=== PATIENT | female | born 1955 | race Caucasian/White ===

== ENCOUNTER 2016-09-27 18:48 | Inpatient (IN) | payer MEDICARE ==
[~2016-09-27] VITALS: Ht 162.6 cm; Wt 58.5 kg
[~2016-09-27 18:48] MED LIST: SODIUM CHLOR 0.9% 1000 ML INJ 1,000 ML IV ONE
[2016-09-27 18:51] VITALS: BP 163/110; PULSE 116; RESP 12; TEMP 100.9; O2SAT 99
[2016-09-27] MEDS ORDERED: NALOXONE HCL 0.4 MG/ML AMP ONE (18:53)
[2016-09-27] MEDS ORDERED: NALOXONE HCL 2 MG/2 ML VIAL ONE (18:53)
[2016-09-27] MEDS ORDERED: ACTIVATED CHARCOAL LIQUID 25 GM/120 ML BTL PO/NG ONE (19:00)
[2016-09-27] MEDS ORDERED: NALOXONE HCL 2 MG/2 ML VIAL IV PUSH ONE ×2 (19:00→19:45)
[2016-09-27] MEDS ORDERED: SODIUM CHLORIDE 0.9% FLUSH 10 ML FLUSH IVF PRN (19:00)
[2016-09-27 19:06] VITALS: RESP 12; O2SAT 100
--- NOTE | 2016-09-27 19:14 | PD ---
HPI Chief Complaint: OD/ Ingestion Time Seen by Provider: 18:48 Travel History International Travel<30 days: No Contact w/Intl Traveler<30days: No Traveled to known affect area: No History of Present Illness HPI 61 yo F arrives by EMS. History is provided mainly by EMS. The patient was found at home by her friend at approximately 6 PM. At 10 AM in the morning the patient's friend had left the patient's house. At that time the patient was sitting in her recliner. When the friend returned this evening the patient had essentially not removed and the patient's mental status was quite poor with EMS reporting a GCS of 3 on scene and a blood pressure of 80/60 with a heart rate in the 60s. The patient received 2 mg of Narcan and the heart rate increased to about 110 and the blood pressure increased to about 120/80. The patient underwent shoulder surgery yesterday. She does not recall the name of the orthopedic surgeon or the nature of the surgery. The patient denies pain at the time of interview. EMS reports there was a prescription for Lortab written yesterday for 60 tablets with 48 remaining. PFSH Past Medical History ?: Not Social History Tobacco Use: No (unable to assess) Allergies-Medications (Allergen,Severity, Reaction): Coded Allergies: UNOBTAINABLE (Unverified , 09/27/16) Review of Systems Except as stated in HPI: all other systems reviewed are Neg Physical Exam Narrative GENERAL: 59-year-old female GCS of 15, somewhat sluggish to answer questions however her speech is appropriate and she follows commands. SKIN: Warm and dry. HEAD: Atraumatic. Normocephalic. EYES: Pupils equal and round. No scleral icterus. No injection or drainage. ENT: No nasal bleeding or discharge. Mucous membranes pink and moist. NECK: Trachea midline. No JVD. CARDIOVASCULAR: Regular rate and rhythm. RESPIRATORY: No accessory muscle use. Clear to auscultation. Breath sounds equal bilaterally. GASTROINTESTINAL: Abdomen soft, non-tender, nondistended. Hepatic and splenic margins not palpable. MUSCULOSKELETAL: Extremities without clubbing, cyanosis, or edema. No obvious deformities. There is a surgical dressing overlying the right shoulder. Underlying surgical scar is intact without cellulitic change. There is appropriate tenderness in the area. NEUROLOGICAL: Awake and alert. No obvious cranial nerve deficits. Motor grossly within normal limits. Five out of 5 muscle strength in the arms and legs. Normal speech. PSYCHIATRIC: Possible OD. Data Data Last Documented VS Vital Signs Date Time Temp Pulse Resp B/P Pulse Ox O2 Delivery O2 Flow Rate FiO2 09/27/16 20:21 103 14 110/71 99 Nasal Cannula 2 09/27/16 18:51 100.9 VS reviewed Orders Electrocardiogram (09/27/16 18:48) Complete Blood Count With Diff (09/27/16 18:48) Comprehensive Metabolic Panel (09/27/16 18:48) Prothrombin Time / Inr (Pt) (09/27/16 18:48) Act Partial Throm Time (Ptt) (09/27/16 18:48) Urinalysis - C+S If Indicated (09/27/16 18:48) Chest, Single Ap (09/27/16 18:48) Iv Access Insert/Monitor (09/27/16 18:48) Ecg Monitoring (09/27/16 18:48) Oximetry (09/27/16 18:48) Charcoal Activated Liq (Actidose-Aqua Li (09/27/16 19:00) Sodium Chloride 0.9% Flush (Ns Flush) (09/27/16 19:00) Sodium Chlor 0.9% 1000 Ml Inj (Ns 1000 M (09/27/16 18:48) Drug Screen, Random Urine (09/27/16 18:48) Alcohol (Ethanol) (09/27/16 18:48) Salicylates (Aspirin) (09/27/16 18:48) Tylenol (Acetaminophen) (09/27/16 18:48) Naloxone Inj (Narcan Inj) (09/27/16 19:00) Naloxone Inj (Narcan Inj) (09/27/16 18:53) Naloxone Inj (Narcan Inj) (09/27/16 18:53) Lactic Acid Sepsis Protocol (09/27/16 19:14) Magnesium (Mg) (09/27/16 19:14) Ckmb (Isoenzyme) Profile (09/27/16 19:14) Troponin I (09/27/16 19:14) Urinalysis - C+S If Indicated (09/27/16 19:14) Bacterial Antigen Csf (09/27/16 19:14) Csf Cell Count + Differential (09/27/16 19:14) Glucose, Csf (09/27/16 19:14) Total Protein, Csf (09/27/16 19:14) Csf Culture And Gram Stain (09/27/16 19:14) Blood Culture (09/27/16 19:14) Ct Brain W/O Iv Contrast(Rout) (09/27/16 19:14) Naloxone Inj (Narcan Inj) (09/27/16 19:45) Cefepime Inj (Maxipime Inj) (09/27/16 20:15) Azithromycin Inj (Zithromax Inj) (09/27/16 20:15) Csf Cell Count + Differential (09/27/16 20:20) CKMB (09/27/16 19:05) CKMB% (09/27/16 19:05) Naloxone Inj (Narcan Inj) (09/27/16 21:45) Naloxone Inj (Narcan Inj) (09/27/16 21:45) Admit Order (Ed Use Only) (09/27/16 21:45) Labs Laboratory Tests Test 09/27/16 09/27/16 09/27/16 09/27/16 19:05 19:10 19:15 20:00 White Blood Count 8.8 TH/MM3 Red Blood Count 3.14 MIL/MM3 Hemoglobin 10.0 GM/DL Hematocrit 30.2 % Mean Corpuscular Volume 96.1 FL Mean Corpuscular Hemoglobin 32.0 PG Mean Corpuscular Hemoglobin 33.3 % Concent Red Cell Distribution Width 12.8 % Platelet Count 178 TH/MM3 Mean Platelet Volume 8.0 FL Neutrophils (%) (Auto) 80.8 % Lymphocytes (%) (Auto) 5.1 % Monocytes (%) (Auto) 13.8 % Eosinophils (%) (Auto) 0.0 % Basophils (%) (Auto) 0.3 % Neutrophils # (Auto) 7.1 TH/MM3 Lymphocytes # (Auto) 0.4 TH/MM3 Monocytes # (Auto) 1.2 TH/MM3 Eosinophils # (Auto) 0.0 TH/MM3 Basophils # (Auto) 0.0 TH/MM3 CBC Comment DIFF FINAL Differential Comment Prothrombin Time 14.7 SEC Prothromb Time International 1.3 RATIO Ratio Activated Partial 32.2 SEC Thromboplast Time Sodium Level 140 MEQ/L Potassium Level 3.4 MEQ/L Chloride Level 106 MEQ/L Carbon Dioxide Level 25.5 MEQ/L Anion Gap 9 MEQ/L Blood Urea Nitrogen 10 MG/DL Creatinine 1.54 MG/DL Estimat Glomerular Filtration 29 ML/MIN Rate Random Glucose 104 MG/DL Calcium Level 6.7 MG/DL Protein Corrected Calcium 7.5 MG/DL Magnesium Level 1.5 MG/DL Total Bilirubin 0.3 MG/DL Aspartate Amino Transf 18 U/L (AST/SGOT) Alanine Aminotransferase 14 U/L (ALT/SGPT) Alkaline Phosphatase 58 U/L Total Creatine Kinase 128 U/L Creatine Kinase MB 1.6 NG/ML Troponin I 0.22 NG/ML Total Protein 5.4 GM/DL Albumin 2.8 GM/DL Salicylates Level LESS THAN 1.7 MG/DL Acetaminophen Level 6.0 MCG/ML Ethyl Alcohol Level LESS THAN 3 MG/DL Urine Color YELLOW Urine Turbidity HAZY Urine pH 5.5 Urine Specific [place] 1.016 Urine Protein NEG mg/dL Urine Glucose (UA) NEG mg/dL Urine Ketones NEG mg/dL Urine Occult Blood NEG Urine Nitrite NEG Urine Bilirubin NEG Urine Urobilinogen LESS THAN 2.0 MG/DL Urine Leukocyte Esterase NEG Urine RBC LESS THAN 1 /hpf Urine WBC 1 /hpf Urine Squamous Epithelial <1 /hpf Cells Urine Amorphous Sediment RARE Urine Bacteria RARE /hpf Urine Hyaline Casts 5 /lpf Microscopic Urinalysis Comment CULT NOT INDICATED Urine Opiates Screen POS Urine Barbiturates Screen NEG Urine Amphetamines Screen NEG Urine Benzodiazepines Screen POS Urine Cocaine Screen NEG Urine Cannabinoids Screen NEG Lactic Acid Level 1.8 mmol/L CSF Volume (Tube 1) 1.8 ML CSF Supernatant Color (tube 1) CLEAR CSF Gross Blood (Tube 1) 0 CSF WBC (Tube 1) 3 /MM3 CSF RBC (Tube 1) 6 /MM3 CSF Volume (Tube 2) 2.0 ML CSF Supernatant Color (tube 2) CLEAR CSF Gross Blood (Tube 2) 0 CSF Volume (Tube 3) 1.7 ML CSF Supernatant Color (tube 3) CLEAR CSF Gross Blood (Tube 3) 0 CSF Volume (Tube 4) 1.0 ML CSF Supernatant Color (tube 4) CLEAR CSF Gross Blood (Tube 4) 0 CSF WBC (Tube 4) 3 /MM3 CSF RBC (Tube 4) 3 /MM3 CSF Neutrophils % CSF Lymphocytes % CSF Monocytes 44 % CSF Differential Comment CSF Glucose 87 MG/DL CSF Total Protein 43.4 MG/DL MDM Medical Decision Making Medical Screen Exam Complete: Yes Emergency Medical Condition: Yes Differential Diagnosis Opioid overdose, benzodiazepine overdose, meningitis, pneumonia, UTI, anemia, renal failure and cardiac disease Narrative Course CBC & BMP Diagram 09/27/16 19:05 Tn 0.22 EKG: sinus tachycardia, rate 111, nonspecific ST changes LFTs unremarkable Mg 1.5 LA 1.8 UDrug: + benzos/opiates APAP 6.0 EtOH < 3 APAP/Salicylates normal UA: no UTI CSF no xanthochromia, no wbcs CXR: L lung pna Patient received naloxone 2 mg 3 here and a naloxone drip was started. Cefepime and azithromycin started. The [place] [facility] [place] Majano. Critical Care Narrative Aggregate critical care time was 50 minutes. Time to perform other separately billable procedures was not included in the critical care time. My time did not include minutes spent treating any other patients simultaneously or on activities that did not directly contribute to the patient's treatment. The services I provided to this patient were to treat and/or prevent clinically significant deterioration that could result in: Septic shock, multiorgan injury I provided critical care services requiring my management, as noted below: Chart data review, documentation time, medication orders and management, vital sign assessments/reviewing monitor data, ordering and reviewing lab tests, ordering and interpreting/reviewing x-rays and diagnostic studies, care of the patient and discussion of the patient with the admitting physicians. Procedures Procedure Narrative LUMBAR PUNCTURE: The patient was placed in the left lateral decubitus position. The lumbar area of the back was prepped with Betadine and sterilely draped. The L3 -- L4 interspace was infiltrated with 1% lidocaine plain. Number 22 gauge LP needle was placed in the interspace. Opening pressure deferred. Number 10 milliliters of clear CSF were obtained. Patient tolerated procedure well. Diagnosis Primary Impression: Altered mental status Qualified Code: R41.82 - Altered mental status, unspecified altered mental status type Additional Impressions: Opioid overdose Qualified Code: T40.2X4S - Opioid overdose, undetermined intent, sequela Benzodiazepine abuse Pneumonia Qualified Code: J18.9 - Pneumonia of left lung due to infectious organism, unspecified part of lung Elevated troponin I level Admitting Information Admitting Physician Requests: Admit Hector Cisneros MD Sep 27, 2016 19:14
[2016-09-27 19:27] VITALS: BP 111/67; PULSE 112; RESP 14; O2SAT 100
[2016-09-27 19:47] LABS: AUTOMATED NEUTROPHIL # 7.1 TH/MM3 (1.8-7.7); BASOPHIL % 0.3 % (0.0-2.0); HEMATOCRIT 30.2 % (35.0-46.0); HEMO FLAGS DIFF FINAL; LYMPH % 5.1 % (9.0-44.0); LYMPHOCYTE # 0.4 TH/MM3 (1.0-4.8); MEAN CELL VOLUME 96.1 FL (80.0-100.0); MEAN CORPUSCULAR HGB CONC 33.3 % (32.0-36.0); MONO % 13.8 % (0.0-8.0); NEUT % 80.8 % (16.0-70.0); PLATELET COUNT 178 TH/MM3 (150-450); RED BLOOD COUNT 3.14 MIL/MM3 (4.00-5.30); RED CELL DISTRIBUTION WIDTH 12.8 % (11.6-17.2); WHITE BLOOD COUNT 8.8 TH/MM3 (4.0-11.0)
[2016-09-27 19:51] LABS: BACTERIA, URINE RARE /hpf; BLOOD, URINE NEG (NEG); COMMENT (UR) CULT NOT INDICATED; CULTURE IF INDICATED CULT NOT INDICATED; GLUCOSE,URINE NEG (NEG); HYALINE CAST, URINE 5 /lpf (RARE); KETONE, URINE NEG (NEG); NITRITE,URINE NEG (NEG); PH, URINE 5.5 (5.0-8.5); SQUAMOUS EPITHELIAL CELL URINE <1 /hpf (0-5); URINE COLOR YELLOW (YELLW/STRAW)
[2016-09-27 19:56] LABS: AMPHETAMINE, URINE NEG (NEG); BARBITURATES, URINE NEG (NEG); COCAINE, URINE NEG (NEG)
[2016-09-27 19:57] LABS: APTT (PATIENT) 32.2 SEC (24.3-30.1); INTERNATIONAL NORMALIZED RATIO 1.3 RATIO; PROTHROMBIN TIME - PATIENT 14.7 SEC (9.8-11.6)
--- NOTE | 2016-09-27 20:00 | RADRPT ---
EXAM DATE/TIME: 09/27/2016 18:47 [facility] COMPARISON: No previous studies available for comparison. INDICATIONS : Suspected overdose. Had right shoulder surgery one day ago. MEDICAL HISTORY : Unobtainable. SURGICAL HISTORY : Right shoulder. ENCOUNTER: Initial ACUITY: 1 day PAIN SCORE: Non-responsive. LOCATION: Bilateral chest FINDINGS: Patchy areas of infiltrate are seen in the left mid and lower lung. The right lung is clear. No ean dence of pneumothorax. Both hemidiaphragms well delineated. The heart is normal in size. Metallic salvador about the right shoulder. CONCLUSION: Patchy areas of infiltrate in left mid and lower lung. Possible fracture of the lateral left 6th rib . Alex Lara MD on September 27, 2016 at 19:57 Board Certified Radiologist. This report was verified electronically.
[2016-09-27 20:10] LABS: ALKALINE PHOSPHATASE 58 U/L (45-117); ALT (GPT) 14 U/L (10-53); ANION GAP 9 MEQ/L (5-15); AST (GOT) 18 U/L (15-37); BICARBONATE 25.5 MEQ/L (21.0-32.0); BLOOD UREA NITROGEN 10 MG/DL (7-18); CALCIUM-PROTEIN CORRECTED 7.5 MG/DL (8.5-10.1); CHLORIDE 106 MEQ/L (98-107); GLOMERULAR FILTRATION RATE 29 ML/MIN (>89); POTASSIUM 3.4 MEQ/L (3.5-5.1); SODIUM (NA) 140 MEQ/L (136-145); TOTAL BILIRUBIN ADULT 0.3 MG/DL (0.2-1.0)
[2016-09-27] MEDS ORDERED: AZITHROMYCIN INJ 500 MG in SODIUM CHLOR 0.9% 250 ML INJ 250 ML IV ONE (20:15)
[2016-09-27] MEDS ORDERED: CEFEPIME INJ 2,000 MG in SODIUM CHLORIDE 0.9% INJ 100 ML IV ONE (20:15)
[2016-09-27 20:21] VITALS: BP 110/71; PULSE 103; RESP 14; O2SAT 99
--- NOTE | 2016-09-27 20:21 | RADRPT ---
EXAM DATE/TIME: 09/27/2016 19:27 [facility] COMPARISON: No previous studies available for comparison. INDICATIONS : Altered mental status. Possible overdose. RADIATION DOSE: 31.20 CTDIvol (mGy) MEDICAL HISTORY : Non-responsive. SURGICAL HISTORY : Non-responsive. ENCOUNTER: Initial ACUITY: 1 day PAIN SCALE: Non-responsive LOCATION: cranial TECHNIQUE: Multiple contiguous axial images were obtained of the head. Using automated exposure control and adj ustment of the mA and/or kV according to patient size, radiation dose was kept as low as reasonably a chievable to obtain optimal diagnostic quality images. DICOM format image data is available electro nically for review and comparison. FINDINGS: CEREBRUM: The ventricles are normal for age. No evidence of midline shift, mass lesion, hemorrhage or acute in farction. No extra-axial fluid collections are seen. POSTERIOR FOSSA: The cerebellum and brainstem are intact. The 4th ventricle is midline. The cerebellopontine angle i s unremarkable. EXTRACRANIAL: The visualized portion of the orbits is intact. SKULL: The calvaria is intact. No evidence of skull fracture. CONCLUSION: Negative noncontrast CT brain. Alex Lara MD on September 27, 2016 at 20:18 Board Certified Radiologist. This report was verified electronically.
[2016-09-27 20:27] LABS: MAGNESIUM 1.5 MG/DL (1.5-2.5)
[2016-09-27 20:29] LABS: CREATINE KINASE 128 U/L (26-192)
[2016-09-27 20:42] LABS: CKMB 1.6 NG/ML (0.5-3.6)
[2016-09-27 21:35] LABS: GROSS BLOOD TUBE #1 0 (0); GROSS BLOOD TUBE #2 0 (0); SUPERNATE COLOR TUBE #1 CLEAR (CLEAR); SUPERNATE COLOR TUBE #2 CLEAR (CLEAR); VOLUME TUBE # 1 1.8 ML; VOLUME TUBE # 3 1.7 ML; WBC TUBE #1 3 /MM3 (0-10)
[2016-09-27 21:36] LABS: CSF LYMPHOCYTES 23 %; CSF MONOCYTES 44 %; CSF NEUTROPHILS 33 %; GROSS BLOOD TUBE #3 0 (0); GROSS BLOOD TUBE #4 0 (0); SUPERNATE COLOR TUBE #3 CLEAR (CLEAR); SUPERNATE COLOR TUBE #4 CLEAR (CLEAR)
[2016-09-27 21:37] LABS: WBC TUBE #4 3 /MM3 (0-10)
[2016-09-27] MEDS ORDERED: NALOXONE INJ 4 MG in DEXTROSE 5% IN WATER INJ 246 ML IV SCH ×2 (21:45)
[2016-09-27] MEDS ORDERED: NALOXONE HCL 0.4 MG/ML AMP IV PUSH ONE (21:45)
[2016-09-27] MEDS ORDERED: BISACODYL 10 MG SUPP RECTAL PRN (22:00)
[2016-09-27] MEDS ORDERED: LACTULOSE SYRUP 20 GM/30 ML CUP PO PRN (22:00)
[2016-09-27] MEDS ORDERED: CHLORHEXIDINE GLUCONATE 2 % 1 PACK (2 CLOTHS) TOP PRN (22:00)
[2016-09-27] MEDS ORDERED: MISCELLANEOUS NURSING INFORMATION XX SCH (22:00)
[2016-09-27] MEDS ORDERED: ACETAMINOPHEN 325 MG TAB PO PRN (22:00)
[2016-09-27] MEDS ORDERED: RESP: ALBUTEROL 2.5 MG/IPRATROPIUM 0.5 MG NEB (PRN) INH (22:00)
[2016-09-27] MEDS ORDERED: SENNOSIDES 8.6 MG TAB PO PRN (22:00)
[2016-09-27] MEDS ORDERED: NALOXONE HCL 0.4 MG/ML AMP IV PRN (22:00)
[2016-09-27] MEDS ORDERED: MAGNESIUM HYDROXIDE SUSP 30 ML CUP PO PRN (22:00)
[2016-09-27] MEDS ORDERED: SODIUM CHLORIDE 0.9% FLUSH 10 ML FLUSH PRN (22:00)
--- NOTE | 2016-09-27 22:03 | HHI.HP ---
HPI Service Critical Care Medicine Primary Care Physician Delfina Ingram MD Admission Diagnosis AMS, Opioid OD, L Lung PNA, Tn 0.22 Diagnosis: Travel History International Travel<30 Days: No Contact w/Intl Traveler <30 Da: No Traveled to Known Affected Are: No History of Present Illness 61 year-old female arrives by EMS. History is obtained from the chart due to patient's altered mental status. The patient was found at home by her friend at approximately 6 PM. At 10 AM in the morning the patient's friend had left the patient's house. At that time the patient was sitting in her recliner. When the friend returned this evening the patient had essentially not moved and the patient's mental status was quite poor with EMS reporting a GCS of 3 on scene and a blood pressure of 80/60 with a heart rate in the 60s. The patient received 2 mg of Narcan and the heart rate increased to about 110 and the blood pressure increased to about 120/80. The patient underwent shoulder surgery yesterday. She does not recall the name of the orthopedic surgeon or the nature of the surgery. EMS reports there was a prescription for Lortab written yesterday for 60 tablets with 48 remaining. Review of Systems ROS Unobtainable due to patient's lethargic Past Family Social History Allergies: Coded Allergies: UNOBTAINABLE (Unverified , 09/27/16) Past Medical History Unobtainable Past Surgical History Right shoulder shoulder surgery 09/26/2016 Reported Medications Unobtainable Active Ordered Medications Current Medications Medications (Trade) Dose Ordered Sig/Evonne Route PRN Reason Start Time Stop Time Status Last Admin Dose Admin Naloxone HCl 4 mg/ Dextrose 250 ml @ 0 mls/hr TITRATE IV 09/27/16 21:45 Sodium Chloride (NS 1000 ml Inj) 1,000 ml @ 125 mls/hr Q8H IV 09/27/16 21:57 09/27/16 22:44 Sodium Chloride (NS Flush) 2 ml UNSCH PRN .XX FLUSH AFTER USING IV ACCESS 09/27/16 22:00 Sodium Chloride (NS Flush) 2 ml BID .XX 09/28/16 09:00 Acetaminophen (Tylenol) 650 mg Q6H PRN PO PAIN 1-10 AND/OR FEVER >101F 09/27/16 22:00 Famotidine (Pepcid Inj) 20 mg Q12HR IV PUSH 09/28/16 09:00 Ondansetron HCl (Zofran Inj) 4 mg Q6H PRN IV NAUSEA OR VOMITING 09/27/16 22:00 Naloxone HCl (Narcan Inj) 0.4 mg Q3M PRN IV RESPIRATORY RATE LESS THAN 10 09/27/16 22:00 Enoxaparin Sodium (Lovenox Inj) 40 mg Q24H SQ 09/27/16 23:00 Miscellaneous Information 1 [id number] XX 09/27/16 22:00 Chlorhexidine Gluconate (Chlorhexidine 2% Cloth) 3 pack Taper DAILY@04 TOP 09/28/16 04:00 09/24/17 03:59 Chlorhexidine Gluconate (Chlorhexidine 2% Cloth) 3 pack UNSCH PRN TOP HYGIENIC CARE 09/27/16 22:00 Senna/Docusate Sodium (Jade-Colace) 1 tab BID PO 09/28/16 09:00 Magnesium Hydroxide (Milk Of Magnesia Liq) 30 ml Q12H PRN PO MILD - MODERATE CONSTIPATION 09/27/16 22:00 Sennosides (Senokot) 17.2 mg Q12H PRN PO MODERATE - SEVERE CONSTIPATION 09/27/16 22:00 Bisacodyl (Dulcolax Supp) 10 mg DAILY PRN RECTAL SEVERE CONSITIPATION 09/27/16 22:00 Lactulose 30 ml 30 ml DAILY PRN PO SEVERE CONSITIPATION 09/27/16 22:00 Piperacillin Sod/ Tazobactam Sod 50 ml @ 100 mls/hr Q8H IV 09/27/16 23:00 Azithromycin/ Sodium Chloride (Zithromax Inj/ NS 250 ml Inj) 250 ml @ 250 mls/hr Q24H IV 09/28/16 20:00 Family History Unobtainable Social History Unobtainable Physical Exam Vital Signs Vital Signs Date Time Temp Pulse Resp B/P Pulse Ox O2 Delivery O2 Flow Rate FiO2 09/27/16 20:21 103 14 110/71 99 Nasal Cannula 2 09/27/16 19:27 112 14 111/67 100 Nasal Cannula 2 09/27/16 19:10 100 Nasal Cannula 2 09/27/16 19:06 12 100 Nasal Cannula 2 09/27/16 18:51 100.9 116 12 163/110 99 Physical Exam GENERAL: Well-nourished, well-developed patient. SKIN: Warm and dry. HEAD: Normocephalic. EYES: No scleral icterus. No injection or drainage. NECK: Supple, trachea midline. No JVD or lymphadenopathy. CARDIOVASCULAR: Regular rate and rhythm without murmurs, gallops, or rubs. RESPIRATORY: Breath sounds equal bilaterally. No accessory muscle use. GASTROINTESTINAL: Abdomen soft, non-tender, nondistended. MUSCULOSKELETAL: No cyanosis, or edema. BACK: Nontender without obvious deformity. NEURO EXAM: GCS: M6 V4 E2 Mental Status: The patient is lethargic with slurred speech, however arousable to painful stimuli Cranial Nerves: Visual acuity unable to obtain. pupils are round, reactive to light. Extraocular movements are intact without ptosis. Hearing is normal bilaterally. Voice is normal. Tongue protrudes midline and moves symmetrically. Reflexes: Biceps, patellar, and Achilles are 2/4 bilaterally. No clonus. Sensation: Sensation did not examine Motor: Good muscle tone. Strength is 5/5 bilaterally. Cerebellar: [id number] and azlg-iz-[id number] test normal bilaterally. Laboratory Laboratory Tests Test 09/27/16 09/27/16 09/27/16 09/27/16 19:05 19:10 19:15 20:00 White Blood Count 8.8 Red Blood Count 3.14 Hemoglobin 10.0 Hematocrit 30.2 Mean Corpuscular Volume 96.1 Mean Corpuscular Hemoglobin 32.0 Mean Corpuscular Hemoglobin 33.3 Concent Red Cell Distribution Width 12.8 Platelet Count 178 Mean Platelet Volume 8.0 Neutrophils (%) (Auto) 80.8 Lymphocytes (%) (Auto) 5.1 Monocytes (%) (Auto) 13.8 Eosinophils (%) (Auto) 0.0 Basophils (%) (Auto) 0.3 Neutrophils # (Auto) 7.1 Lymphocytes # (Auto) 0.4 Monocytes # (Auto) 1.2 Eosinophils # (Auto) 0.0 Basophils # (Auto) 0.0 CBC Comment DIFF FINAL Differential Comment Prothrombin Time 14.7 Prothromb Time International 1.3 Ratio Activated Partial 32.2 Thromboplast Time Sodium Level 140 Potassium Level 3.4 Chloride Level 106 Carbon Dioxide Level 25.5 Anion Gap 9 Blood Urea Nitrogen 10 Creatinine 1.54 Estimat Glomerular Filtration 29 Rate Random Glucose 104 Calcium Level 6.7 Protein Corrected Calcium 7.5 Magnesium Level 1.5 Total Bilirubin 0.3 Aspartate Amino Transf 18 (AST/SGOT) Alanine Aminotransferase 14 (ALT/SGPT) Alkaline Phosphatase 58 Total Creatine Kinase 128 Creatine Kinase MB 1.6 Troponin I 0.22 Total Protein 5.4 Albumin 2.8 Salicylates Level LESS THAN 1.7 Acetaminophen Level 6.0 Ethyl Alcohol Level LESS THAN 3 Urine Color YELLOW Urine Turbidity HAZY Urine pH 5.5 Urine Specific [place] 1.016 Urine Protein NEG Urine Glucose (UA) NEG Urine Ketones NEG Urine Occult Blood NEG Urine Nitrite NEG Urine Bilirubin NEG Urine Urobilinogen LESS THAN 2.0 Urine Leukocyte Esterase NEG Urine RBC LESS THAN 1 Urine WBC 1 Urine Squamous Epithelial <1 Cells Urine Amorphous Sediment RARE Urine Bacteria RARE Urine Hyaline Casts 5 Microscopic Urinalysis Comment CULT NOT INDICATED Urine Opiates Screen POS Urine Barbiturates Screen NEG Urine Amphetamines Screen NEG Urine Benzodiazepines Screen POS Urine Cocaine Screen NEG Urine Cannabinoids Screen NEG Lactic Acid Level 1.8 CSF Volume (Tube 1) 1.8 CSF Supernatant Color (tube 1) CLEAR CSF Gross Blood (Tube 1) 0 CSF WBC (Tube 1) 3 CSF RBC (Tube 1) 6 CSF Volume (Tube 2) 2.0 CSF Supernatant Color (tube 2) CLEAR CSF Gross Blood (Tube 2) 0 CSF Volume (Tube 3) 1.7 CSF Supernatant Color (tube 3) CLEAR CSF Gross Blood (Tube 3) 0 CSF Volume (Tube 4) 1.0 CSF Supernatant Color (tube 4) CLEAR CSF Gross Blood (Tube 4) 0 CSF WBC (Tube 4) 3 CSF RBC (Tube 4) 3 CSF Neutrophils CSF Lymphocytes CSF Monocytes 44 CSF Differential Comment CSF Glucose 87 CSF Total Protein 43.4 Date/Time Procedure Status Source Growth 09/27/16 20:00 Gram Stain - Final Resulted Cerebral Spinal Fluid Lumbar Puncture 09/27/16 20:00 CSF Culture Resulted Cerebral Spinal Fluid Lumbar Puncture Pending 09/27/16 19:15 Aerobic Blood Culture Received Blood Peripheral Pending 09/27/16 19:15 Anaerobic Blood Culture Received Blood Peripheral Pending Result Diagram: [id number]/27/[id number] Imaging Last [address] 09/27/[id number] Signed Impressions: Service Date/Time: September 19:27 - CONCLUSION: Negative noncontrast CT brain. Alex Lara MD Chest X-Ray 09/27/16 1848 Signed Impressions: Service Date/Time: September 18:47 - CONCLUSION: Patchy areas of infiltrate in left mid and lower lung. Possible fracture of the lateral left 6th rib. Alex Lara MD Assessment and Plan Assessment and Plan Altered mental status - Lortab overdose - Status post right shoulder surgery - Most likely unintentional - CT head negative - Admit to ICU - Neuro checks per unit routine - Narcan when necessary Pneumonia - Community-acquired versus aspiration - Zosyn and azithromycin - Follow-up urine antigens and blood cultures Acute kidney injury - Dehydration - Limited intake due to altered mental status - Aggressive IV fluid hydration - Strict I's and O - Electrolytes replacement per ICU protocol - Monitor creatinine and electrolyte levels DVT GI prophylaxis - Teds SCDs - Subcutaneous Lovenox - Pepcid Critical Care: The total critical care time was 35 minutes. Time to perform other separately billable procedures was not included in the critical care time. Michael Majano MD Sep 27, 2016 22:03
[2016-09-27] MEDS: SODIUM CHLOR 0.9% 1000 ML INJ 1,000 ML IV SCH (22:44)
[2016-09-27 23:00] VITALS: BP 114/62; PULSE 88; RESP 15; TEMP 99.4; O2SAT 100
[2016-09-27] MEDS ORDERED: ENOXAPARIN SODIUM 40 MG/0.4 ML SYRINGE SQ SCH (23:00)
[2016-09-27] MEDS ORDERED: POTASSIUM CHLOR 20 MEQ PREMIX 100 ML IV PRN ×2 (23:00)
[2016-09-27] MEDS ORDERED: POTASSIUM PHOSPHATE INJ 30 MMOL in SODIUM CHLOR 0.9% 250 ML INJ 250 ML IV PRN (23:00)
[2016-09-27] MEDS ORDERED: MAGNESIUM OXIDE 400 MG TAB PO PRN (23:00)
[2016-09-27] MEDS ORDERED: SODIUM PHOSPHATE INJ 30 MMOL in SODIUM CHLOR 0.9% 250 ML INJ 240 ML IV PRN (23:00)
[2016-09-27] MEDS ORDERED: MAGNESIUM SULFATE INJ 4 GM in SODIUM CHLORIDE 0.9% INJ 92 ML IV PRN (23:00)
[2016-09-27] MEDS ORDERED: POTASSIUM CHLOR 40 MEQ PREMIX 100 ML IV PRN ×2 (23:00)
[2016-09-27] MEDS ORDERED: POTASSIUM CHLORIDE 25 MEQ EFFERVESCENT TAB PO PRN (23:00)
[2016-09-27] MEDS ORDERED: MAGNESIUM SULFATE INJ 2 GM in SODIUM CHLORIDE 0.9% INJ 96 ML IV PRN (23:00)
[2016-09-27] MEDS ORDERED: POTASSIUM PHOSPHATE MONOBASIC 500 MG TAB PO/TUBE PRN (23:00)
[2016-09-27] MEDS ORDERED: POTASSIUM PHOSPHATE MONOBASIC 500 MG TAB PO PRN (23:00)
[2016-09-27] MEDS: PIPERACIL-TAZO 3.375 GM PREMIX 50 ML IV SCH (23:25)
[2016-09-28] VITALS (15 sets, daily range): BP systolic 101–163; BP diastolic 58–69; PULSE 62–79; RESP 13–20; TEMP 98.9–99.9; O2SAT 92–99
[2016-09-28] MEDS ORDERED: PILL SPLITTER OTHER PRN (02:45)
[2016-09-28] MEDS: CHLORHEXIDINE GLUCONATE 2 % 1 PACK (2 CLOTHS) TOP SCH (03:23)
[2016-09-28] MEDS: ASPIRIN 325 MG TAB PO SCH ×2 (03:23→08:17)
[2016-09-28] MEDS: ATORVASTATIN 80 MG TAB PO SCH ×2 (03:23→12:47)
[2016-09-28] MEDS: SODIUM CHLOR 0.9% 1000 ML INJ 1,000 ML IV SCH ×2 (03:23→12:48)
[2016-09-28 04:59] LABS: AUTOMATED NEUTROPHIL # 11.3 TH/MM3 (1.8-7.7); BASOPHIL % 0.2 % (0.0-2.0); HEMATOCRIT 32.1 % (35.0-46.0); HEMO FLAGS DIFF FINAL; LYMPH % 8.6 % (9.0-44.0); LYMPHOCYTE # 1.2 TH/MM3 (1.0-4.8); MEAN CELL VOLUME 95.1 FL (80.0-100.0); MEAN CORPUSCULAR HGB CONC 33.6 % (32.0-36.0); MONO % 7.9 % (0.0-8.0); NEUT % 83.3 % (16.0-70.0); PLATELET COUNT 156 TH/MM3 (150-450); RED BLOOD COUNT 3.38 MIL/MM3 (4.00-5.30); RED CELL DISTRIBUTION WIDTH 12.9 % (11.6-17.2); WHITE BLOOD COUNT 13.6 TH/MM3 (4.0-11.0)
[2016-09-28 05:16] LABS: ALKALINE PHOSPHATASE 72 U/L (45-117); ALT (GPT) 57 U/L (10-53); ANION GAP 11 MEQ/L (5-15); AST (GOT) 104 U/L (15-37); BICARBONATE 22.2 MEQ/L (21.0-32.0); BLOOD UREA NITROGEN 8 MG/DL (7-18); CHLORIDE 110 MEQ/L (98-107); CREATINE KINASE 283 U/L (26-192); GLOMERULAR FILTRATION RATE 61 ML/MIN (>89); MAGNESIUM 1.7 MG/DL (1.5-2.5); SODIUM (NA) 143 MEQ/L (136-145); TOTAL BILIRUBIN ADULT 0.4 MG/DL (0.2-1.0)
--- NOTE | 2016-09-28 05:24 | RADRPT ---
EXAM DATE/TIME: 09/28/2016 03:56 [facility] COMPARISON: CHEST SINGLE AP, September 27, 2016, 18:47. INDICATIONS : Evaluate for pneumonia. MEDICAL HISTORY : None. SURGICAL HISTORY : Right shoulder. ENCOUNTER: Subsequent ACUITY: 2 days PAIN SCORE: Non-responsive. LOCATION: chest FINDINGS: The cardiac silhouette is enlarged in transverse diameter. There is left lower lobe atelectasis versu s pneumonia. There has been no significant change when compared to the prior exam. The right lung is free of acute parenchymal opacity. CONCLUSION: 1. Left lower lobe atelectasis versus pneumonia. There has been no significant change when compared t o the prior exam. Caleb Mendes MD on September 28, 2016 at 5:22 Board Certified Radiologist. This report was verified electronically.
[2016-09-28] MEDS: PIPERACIL-TAZO 3.375 GM PREMIX 50 ML IV SCH ×3 (06:02→21:30)
[2016-09-28 07:19] LABS: CKMB 6.2 NG/ML (0.5-3.6)
--- NOTE | 2016-09-28 08:10 | PD.CONS ---
HPI Service cardiology Consult Requested By Reason for Consult elevated troponin Primary Care Physician Delfina Ingram MD History of Present Illness 61 wF with no prior cardiac history admitted after being found with AMS yesterday at home by a friend. Apparently patient had right shoulder surgery on 09/26/16, she was given Lortab and found to taken several doses based on quantity remaining in bottle. EMS found her hypotensive, she was given Narcan with improvement in SBP. CXR revealed left infiltrate and troponin elevated. She is currently somnolent. (Mary Lou Haas) Review of Systems patient somnolent, unable to obtain ROS (Mary Lou Haas) Past Family Social History Allergies: Coded Allergies: UNOBTAINABLE (Unverified , 09/27/16) Past Medical History anxiety Past Surgical History hysterectomy Reported Medications unable to obtain Active Ordered Medications Current Medications Medications (Trade) Dose Ordered Sig/Evonne Route Start Time Stop Time Status Last Admin Naloxone HCl 4 mg/ Dextrose 250 ml @ 0 mls/hr TITRATE IV 09/27/16 21:45 (NS 1000 ml Inj) 1,000 ml @ 125 mls/hr Q8H IV 09/27/16 21:57 09/28/16 03:23 (NS Flush) 2 ml UNSCH PRN .XX 09/27/16 22:00 (NS Flush) 2 ml BID .XX 09/28/16 09:00 (Tylenol) 650 mg Q6H PRN PO 09/27/16 22:00 (Pepcid Inj) 20 mg Q12HR IV PUSH 09/28/16 09:00 (Zofran Inj) 4 mg Q6H PRN IV 09/27/16 22:00 (Narcan Inj) 0.4 mg Q3M PRN IV 09/27/16 22:00 Miscellaneous Information 1 Q361D XX 09/27/16 22:00 (Chlorhexidine 2% Cloth) 3 pack Taper DAILY@04 TOP 09/28/16 04:00 09/24/17 03:59 09/28/16 03:23 (Chlorhexidine 2% Cloth) 3 pack UNSCH PRN TOP 09/27/16 22:00 (Jade-Colace) 1 tab BID PO 09/28/16 09:00 (Milk Of Magnesia Liq) 30 ml Q12H PRN PO 09/27/16 22:00 (Senokot) 17.2 mg Q12H PRN PO 09/27/16 22:00 (Dulcolax Supp) 10 mg DAILY PRN RECTAL 09/27/16 22:00 Lactulose 30 ml 30 ml DAILY PRN PO 09/27/16 22:00 Piperacillin Sod/ Tazobactam Sod 50 ml @ 100 mls/hr Q8H IV 09/27/16 23:00 09/28/16 06:02 Azithromycin 500 mg/Sodium Chloride 250 ml @ 250 mls/hr Q24H IV 09/28/16 20:00 Potassium Chloride 100 ml @ 50 mls/hr Q2H PRN IV 09/27/16 23:00 (KCl 20 Meq Premix Inj) 100 ml @ 50 mls/hr Q2H PRN IV 09/27/16 23:00 Potassium Bicarb/ Potassium Chloride 50 meq 50 meq UNSCH PRN PO 09/27/16 23:00 Potassium Chloride 100 ml @ 25 mls/hr UNSCH PRN IV 09/27/16 23:00 Potassium Chloride 100 ml @ 50 mls/hr Q2H PRN IV 09/27/16 23:00 (Magnesium Sulfate Inj/NS Inj) 100 ml @ 50 mls/hr UNSCH PRN IV 09/27/16 23:00 Magnesium Oxide 800 mg 800 mg UNSCH PRN PO 09/27/16 23:00 (Magnesium Sulfate Inj/NS Inj) 100 ml @ 50 mls/hr UNSCH PRN IV 09/27/16 23:00 Potassium Phosphate 2000 mg 2,000 mg Q4H PRN PO 09/27/16 23:00 (Sodium Phosphate Inj/NS 250 ml Inj) 250 ml @ 42 mls/hr UNSCH PRN IV 09/27/16 23:00 Potassium Phosphate 2000 mg 2,000 mg UNSCH PRN PO/TUBE 09/27/16 23:00 (Potassium Phosphate Inj/NS 250 ml Inj) 260 ml @ 42 mls/hr UNSCH PRN IV 09/27/16 23:00 (Aspirin) 325 mg DAILY PO 09/28/16 02:30 09/28/16 03:23 (Lipitor) 80 mg DAILY PO 09/28/16 02:30 09/28/16 03:23 (Lopressor) 12.5 mg Q12HR PO 09/28/16 09:00 (Pill Splitter) 1 ea UNSCH PRN OTHER 09/28/16 02:45 (Lovenox Inj) 60 mg Q12H SQ 09/28/16 11:00 Family History unknown Social History unknown (Mary Lou Haas) Physical Exam Vital Signs Vital Signs Date Time Temp Pulse Resp B/P Pulse Ox O2 Delivery O2 Flow Rate FiO2 09/28/16 06:00 73 09/28/16 05:21 92 Nasal Cannula 2.00 09/28/16 04:00 78 09/28/16 04:00 99.7 78 17 163/65 98 09/28/16 02:00 79 09/28/16 01:35 99.9 79 13 125/69 96 09/27/16 23:00 99.4 88 15 114/62 100 Nasal Cannula 2 09/27/16 20:21 103 14 110/71 99 Nasal Cannula 2 09/27/16 19:27 112 14 111/67 100 Nasal Cannula 2 09/27/16 19:10 100 Nasal Cannula 2 09/27/16 19:06 12 100 Nasal Cannula 2 09/27/16 18:51 100.9 116 12 163/110 99 Physical Exam HEAD: Atraumatic. Normocephalic. EYES: Pupils equal and round. No scleral icterus. ENT: No nasal bleeding or discharge. Mucous membranes pink and moist. NECK: Trachea midline. No JVD. CARDIOVASCULAR: Regular rate and rhythm. No murmurs RESPIRATORY: No accessory muscle use. decreased breath sounds LLL GASTROINTESTINAL: Abdomen soft, non-tender, nondistended. MUSCULOSKELETAL: Extremities without clubbing, cyanosis, or edema. No obvious deformities. NEUROLOGICAL: somnolent Laboratory Laboratory Tests Test 09/27/16 09/27/16 09/27/16 09/27/16 19:05 19:10 19:15 20:00 White Blood Count 8.8 Red Blood Count 3.14 Hemoglobin 10.0 Hematocrit 30.2 Mean Corpuscular Volume 96.1 Mean Corpuscular Hemoglobin 32.0 Mean Corpuscular Hemoglobin 33.3 Concent Red Cell Distribution Width 12.8 Platelet Count 178 Mean Platelet Volume 8.0 Neutrophils (%) (Auto) 80.8 Lymphocytes (%) (Auto) 5.1 Monocytes (%) (Auto) 13.8 Eosinophils (%) (Auto) 0.0 Basophils (%) (Auto) 0.3 Neutrophils # (Auto) 7.1 Lymphocytes # (Auto) 0.4 Monocytes # (Auto) 1.2 Eosinophils # (Auto) 0.0 Basophils # (Auto) 0.0 CBC Comment DIFF FINAL Differential Comment Prothrombin Time 14.7 Prothromb Time International 1.3 Ratio Activated Partial 32.2 Thromboplast Time Sodium Level 140 Potassium Level 3.4 Chloride Level 106 Carbon Dioxide Level 25.5 Anion Gap 9 Blood Urea Nitrogen 10 Creatinine 1.54 Estimat Glomerular Filtration 29 Rate Random Glucose 104 Calcium Level 6.7 Protein Corrected Calcium 7.5 Magnesium Level 1.5 Total Bilirubin 0.3 Aspartate Amino Transf 18 (AST/SGOT) Alanine Aminotransferase 14 (ALT/SGPT) Alkaline Phosphatase 58 Total Creatine Kinase 128 Creatine Kinase MB 1.6 Troponin I 0.22 Total Protein 5.4 Albumin 2.8 Salicylates Level LESS THAN 1.7 Acetaminophen Level 6.0 Ethyl Alcohol Level LESS THAN 3 Urine Color YELLOW Urine Turbidity HAZY Urine pH 5.5 Urine Specific [place] 1.016 Urine Protein NEG Urine Glucose (UA) NEG Urine Ketones NEG Urine Occult Blood NEG Urine Nitrite NEG Urine Bilirubin NEG Urine Urobilinogen LESS THAN 2.0 Urine Leukocyte Esterase NEG Urine RBC LESS THAN 1 Urine WBC 1 Urine Squamous Epithelial <1 Cells Urine Amorphous Sediment RARE Urine Bacteria RARE Urine Hyaline Casts 5 Microscopic Urinalysis Comment CULT NOT INDICATED Urine Opiates Screen POS Urine Barbiturates Screen NEG Urine Amphetamines Screen NEG Urine Benzodiazepines Screen POS Urine Cocaine Screen NEG Urine Cannabinoids Screen NEG Lactic Acid Level 1.8 CSF Volume (Tube 1) 1.8 CSF Supernatant Color (tube 1) CLEAR CSF Gross Blood (Tube 1) 0 CSF WBC (Tube 1) 3 CSF RBC (Tube 1) 6 CSF Volume (Tube 2) 2.0 CSF Supernatant Color (tube 2) CLEAR CSF Gross Blood (Tube 2) 0 CSF Volume (Tube 3) 1.7 CSF Supernatant Color (tube 3) CLEAR CSF Gross Blood (Tube 3) 0 CSF Volume (Tube 4) 1.0 CSF Supernatant Color (tube 4) CLEAR CSF Gross Blood (Tube 4) 0 CSF WBC (Tube 4) 3 CSF RBC (Tube 4) 3 CSF Neutrophils CSF Lymphocytes CSF Monocytes 44 CSF Differential Comment CSF Glucose 87 CSF Total Protein 43.4 Test 09/28/16 09/28/16 01:00 04:14 Troponin I 1.36 White Blood Count 13.6 Red Blood Count 3.38 Hemoglobin 10.8 Hematocrit 32.1 Mean Corpuscular Volume 95.1 Mean Corpuscular Hemoglobin 32.0 Mean Corpuscular Hemoglobin 33.6 Concent Red Cell Distribution Width 12.9 Platelet Count 156 Mean Platelet Volume 8.8 Neutrophils (%) (Auto) 83.3 Lymphocytes (%) (Auto) 8.6 Monocytes (%) (Auto) 7.9 Eosinophils (%) (Auto) 0.0 Basophils (%) (Auto) 0.2 Neutrophils # (Auto) 11.3 Lymphocytes # (Auto) 1.2 Monocytes # (Auto) 1.1 Eosinophils # (Auto) 0.0 Basophils # (Auto) 0.0 CBC Comment DIFF FINAL Differential Comment Sodium Level 143 Potassium Level 4.0 Chloride Level 110 Carbon Dioxide Level 22.2 Anion Gap 11 Blood Urea Nitrogen 8 Creatinine 0.93 Estimat Glomerular Filtration 61 Rate Random Glucose 100 Calcium Level 7.6 Phosphorus Level 3.6 Magnesium Level 1.7 Total Bilirubin 0.4 Aspartate Amino Transf 104 (AST/SGOT) Alanine Aminotransferase 57 (ALT/SGPT) Alkaline Phosphatase 72 Total Creatine Kinase 283 Creatine Kinase MB 6.2 Creatine Kinase MB % 2.2 Total Protein 6.4 Albumin 3.0 Date/Time Procedure Status Source Growth 09/27/16 20:00 Gram Stain - Final Resulted Cerebral Spinal Fluid Lumbar Puncture 09/27/16 20:00 CSF Culture Resulted Cerebral Spinal Fluid Lumbar Puncture Pending 09/27/16 19:15 Aerobic Blood Culture Received Blood Peripheral Pending 09/27/16 19:15 Anaerobic Blood Culture Received Blood Peripheral Pending (Mary Lou Haas) Result Diagram: 09/28/16 0414 09/28/16 0414 Imaging Last Impressions Chest X-Ray 09/28/16 0000 Signed Impressions: Service Date/Time: Wednesday, September 28, 2016 03:56 - CONCLUSION: 1. Left lower lobe atelectasis versus pneumonia. There has been no significant change when compared to the prior exam. Caleb Mendes MD Head CT 09/27/[id number] Signed Impressions: Service Date/Time: September 19:27 - CONCLUSION: Negative noncontrast CT brain. Alex Lara MD (Mary Lou Haas) Assessment and Plan Problem List: (1) Elevated troponin I level Assessment and Plan 61 yo WF found with altered mental status; s/p R shoulder surgery 2 days ago. recent opiate use; with +PNA. elevated troponin- 1.36/ 0.22. tele reveals no concerning arrhythmia, ecg no ST changes. vitals stable. consider lexiscan to evaluate for ischemia vs. cardiac cath (Mary Lou Haas) Assessment and Plan Troponin trending upward agree with above. allow for recovery over weekend. plan for [facility] saturday afternoon. NPO after light breakfast saturday (Marcelo Holley MD) Mary Lou Haas Sep 28, 2016 08:10 Marcelo Holley MD Sep 28, 2016 11:02
[2016-09-28] MEDS: DOCUSATE SODIUM 50 MG/SENNA 8.6 MG TAB PO SCH ×2 (08:17→21:00)
[2016-09-28] MEDS: METOPROLOL TARTRATE 25 MG TAB PO SCH ×2 (08:18→21:33)
[2016-09-28] MEDS: FAMOTIDINE 20 MG/2 ML VIAL IV PUSH SCH ×2 (08:19→21:30)
[2016-09-28] MEDS: SODIUM CHLORIDE 0.9% FLUSH 10 ML FLUSH SCH ×2 (08:19→21:31)
--- NOTE | 2016-09-28 09:33 | EKG ---
Date Performed: 09/27/2016 Time Performed: 18:55:17 PTAGE: 89 years EKG: SINUS TACHYCARDIA NONSPECIFIC ST & T-WAVE ABNORMALITY ABNORMAL RHYTHM ECG NO PREVIOUS TRACING DOCTOR: Caleb Whyte Interpretating Date/Time 09/28/2016 09:31:22
--- NOTE | 2016-09-28 10:21 | EKG ---
Date Performed: 09/28/2016 Time Performed: 03:33:24 PTAGE: 61 years EKG: Sinus rhythm . Extensive T wave changes are nonspecific Low QRS voltages in precordial leads Borderline ECG Since PREVIOUS TRACING , no significant change noted PREVIOUS TRACING 09/27/2016 [id number] DOCTOR: Caleb Whyte Interpretating Date/Time 09/28/2016 10:20:27
[2016-09-28] MEDS ORDERED: ENOXAPARIN SODIUM 40 MG/0.4 ML SYRINGE SQ SCH (11:00)
[2016-09-28] MEDS ORDERED: SODIUM BICARBONATE 8.4% INJ 50 MEQ/50 ML SYR ONE (11:10)
--- NOTE | 2016-09-28 11:59 | HHI.CCPN ---
Subjective Remarks/Hospital Course 61 year-old female arrives by EMS. History is obtained from the chart due to patient's altered mental status. The patient was found at home by her friend at approximately 6 PM. At 10 AM in the morning the patient's friend had left the patient's house. At that time the patient was sitting in her recliner. When the friend returned this evening the patient had essentially not moved and the patient's mental status was quite poor with EMS reporting a GCS of 3 on scene and a blood pressure of 80/60 with a heart rate in the 60s. The patient received 2 mg of Narcan and the heart rate increased to about 110 and the blood pressure increased to about 120/80. The patient underwent shoulder surgery yesterday. She does not recall the name of the orthopedic surgeon or the nature of the surgery. EMS reports there was a prescription for Lortab written yesterday for 60 tablets with 48 remaining. 09/28 Patient is lying in bed in NAD. Afebrile. Objective Vital Signs Date Time Temp Pulse Resp B/P Pulse Ox O2 Delivery O2 Flow Rate FiO2 09/28/16 08:00 62 09/28/16 08:00 98.9 18 101/59 99 09/28/16 05:21 Nasal Cannula 2.00 Result Diagram: 09/28/16 0414 09/28/16 0414 Other Results Laboratory Tests Test 09/27/16 09/27/16 09/27/16 09/27/16 19:05 19:10 19:15 20:00 White Blood Count 8.8 TH/MM3 Red Blood Count 3.14 MIL/MM3 Hemoglobin 10.0 GM/DL Hematocrit 30.2 % Mean Corpuscular Volume 96.1 FL Mean Corpuscular Hemoglobin 32.0 PG Mean Corpuscular Hemoglobin 33.3 % Concent Red Cell Distribution Width 12.8 % Platelet Count 178 TH/MM3 Mean Platelet Volume 8.0 FL Neutrophils (%) (Auto) 80.8 % Lymphocytes (%) (Auto) 5.1 % Monocytes (%) (Auto) 13.8 % Eosinophils (%) (Auto) 0.0 % Basophils (%) (Auto) 0.3 % Neutrophils # (Auto) 7.1 TH/MM3 Lymphocytes # (Auto) 0.4 TH/MM3 Monocytes # (Auto) 1.2 TH/MM3 Eosinophils # (Auto) 0.0 TH/MM3 Basophils # (Auto) 0.0 TH/MM3 CBC Comment DIFF FINAL Differential Comment Prothrombin Time 14.7 SEC Prothromb Time International 1.3 RATIO Ratio Activated Partial 32.2 SEC Thromboplast Time Sodium Level 140 MEQ/L Potassium Level 3.4 MEQ/L Chloride Level 106 MEQ/L Carbon Dioxide Level 25.5 MEQ/L Anion Gap 9 MEQ/L Blood Urea Nitrogen 10 MG/DL Creatinine 1.54 MG/DL Estimat Glomerular Filtration 29 ML/MIN Rate Random Glucose 104 MG/DL Calcium Level 6.7 MG/DL Protein Corrected Calcium 7.5 MG/DL Magnesium Level 1.5 MG/DL Total Bilirubin 0.3 MG/DL Aspartate Amino Transf 18 U/L (AST/SGOT) Alanine Aminotransferase 14 U/L (ALT/SGPT) Alkaline Phosphatase 58 U/L Total Creatine Kinase 128 U/L Creatine Kinase MB 1.6 NG/ML Troponin I 0.22 NG/ML Total Protein 5.4 GM/DL Albumin 2.8 GM/DL Salicylates Level LESS THAN 1.7 MG/DL Acetaminophen Level 6.0 MCG/ML Ethyl Alcohol Level LESS THAN 3 MG/DL Urine Color YELLOW Urine Turbidity HAZY Urine pH 5.5 Urine Specific [place] 1.016 Urine Protein NEG mg/dL Urine Glucose (UA) NEG mg/dL Urine Ketones NEG mg/dL Urine Occult Blood NEG Urine Nitrite NEG Urine Bilirubin NEG Urine Urobilinogen LESS THAN 2.0 MG/DL Urine Leukocyte Esterase NEG Urine RBC LESS THAN 1 /hpf Urine WBC 1 /hpf Urine Squamous Epithelial <1 /hpf Cells Urine Amorphous Sediment RARE Urine Bacteria RARE /hpf Urine Hyaline Casts 5 /lpf Microscopic Urinalysis Comment CULT NOT INDICATED Urine Opiates Screen POS Urine Barbiturates Screen NEG Urine Amphetamines Screen NEG Urine Benzodiazepines Screen POS Urine Cocaine Screen NEG Urine Cannabinoids Screen NEG Lactic Acid Level 1.8 mmol/L CSF Volume (Tube 1) 1.8 ML CSF Supernatant Color (tube 1) CLEAR CSF Gross Blood (Tube 1) 0 CSF WBC (Tube 1) 3 /MM3 CSF RBC (Tube 1) 6 /MM3 CSF Volume (Tube 2) 2.0 ML CSF Supernatant Color (tube 2) CLEAR CSF Gross Blood (Tube 2) 0 CSF Volume (Tube 3) 1.7 ML CSF Supernatant Color (tube 3) CLEAR CSF Gross Blood (Tube 3) 0 CSF Volume (Tube 4) 1.0 ML CSF Supernatant Color (tube 4) CLEAR CSF Gross Blood (Tube 4) 0 CSF WBC (Tube 4) 3 /MM3 CSF RBC (Tube 4) 3 /MM3 CSF Neutrophils % CSF Lymphocytes % CSF Monocytes 44 % CSF Differential Comment CSF Glucose 87 MG/DL CSF Total Protein 43.4 MG/DL Test 09/28/16 09/28/16 09/28/16 09/28/16 01:00 01:35 04:14 07:00 Troponin I 1.36 NG/ML 1.64 NG/ML Nasal Screen MRSA (PCR) MRSA NOT DETECTED White Blood Count 13.6 TH/MM3 Red Blood Count 3.38 MIL/MM3 Hemoglobin 10.8 GM/DL Hematocrit 32.1 % Mean Corpuscular Volume 95.1 FL Mean Corpuscular Hemoglobin 32.0 PG Mean Corpuscular Hemoglobin 33.6 % Concent Red Cell Distribution Width 12.9 % Platelet Count 156 TH/MM3 Mean Platelet Volume 8.8 FL Neutrophils (%) (Auto) 83.3 % Lymphocytes (%) (Auto) 8.6 % Monocytes (%) (Auto) 7.9 % Eosinophils (%) (Auto) 0.0 % Basophils (%) (Auto) 0.2 % Neutrophils # (Auto) 11.3 TH/MM3 Lymphocytes # (Auto) 1.2 TH/MM3 Monocytes # (Auto) 1.1 TH/MM3 Eosinophils # (Auto) 0.0 TH/MM3 Basophils # (Auto) 0.0 TH/MM3 CBC Comment DIFF FINAL Differential Comment Sodium Level 143 MEQ/L Potassium Level 4.0 MEQ/L Chloride Level 110 MEQ/L Carbon Dioxide Level 22.2 MEQ/L Anion Gap 11 MEQ/L Blood Urea Nitrogen 8 MG/DL Creatinine 0.93 MG/DL Estimat Glomerular Filtration 61 ML/MIN Rate Random Glucose 100 MG/DL Calcium Level 7.6 MG/DL Phosphorus Level 3.6 MG/DL 3.6 MG/DL Magnesium Level 1.7 MG/DL Total Bilirubin 0.4 MG/DL Aspartate Amino Transf 104 U/L (AST/SGOT) Alanine Aminotransferase 57 U/L (ALT/SGPT) Alkaline Phosphatase 72 U/L Total Creatine Kinase 283 U/L Creatine Kinase MB 6.2 NG/ML Creatine Kinase MB % 2.2 % Total Protein 6.4 GM/DL Albumin 3.0 GM/DL Imaging Last Impressions Chest X-Ray 09/28/16 0000 Signed Impressions: Service Date/Time: Wednesday, September 28, 2016 03:56 - CONCLUSION: 1. Left lower lobe atelectasis versus pneumonia. There has been no significant change when compared to the prior exam. Caleb Mendes MD Head CT 09/27/16 1914 Signed Impressions: Service Date/Time: September 19:27 - CONCLUSION: Negative noncontrast CT brain. Alex Lara MD Objective Remarks GENERAL: Patient is 61 yo lying in bed in NAD SKIN: Warm and dry. HEAD: Normocephalic. EYES: No scleral icterus. No injection or drainage. NECK: Supple, trachea midline. No JVD or lymphadenopathy. CARDIOVASCULAR: Regular rate and rhythm without murmurs, gallops, or rubs. RESPIRATORY: Breath sounds equal bilaterally. No accessory muscle use. GASTROINTESTINAL: Abdomen soft, non-tender, nondistended. MUSCULOSKELETAL: No cyanosis, or edema. A/P Assessment and Plan 1) Resp Insuff 2)Altered mental status - Lortab overdose - Status post right shoulder surgery 3)LLL atelectasis vs pneumonia 4)ADIN ..improved 5)Leukocytosis 6)NSTEMI 7)Elevated LFT Plan Neuro: Monitor neuro status, avoid sedatives. UDS+ Opiates, benzos. 09/27 CT brain- no acute process 09/27 LP- clear CSF, 3 WBC Pulm: Continue with oxygen keep sat >92% Bronchodilators, aspiration precautions CV: Monitor HR and BP keep MAP>65mmHg Monitor trop, check 2D echo to eval LV function. Continue with Lopressor 12.5mg BID, ASA 325 mg daily, Lovenox 60mg Q12 Hold Lipitor for elevated LFT's. Discussed with Dr. Holley for possible cath on Sunday 10/01 : Monitor renal function, I/O's, electrolytes replacement as needed. On NS@75ml/hr. Renal function resolving with Cr:0.93 from 1.54 GI: On PO diet, Pepcid 20mg Q12 Monitor LFT's, check US liver, ammonia level. ID: Continue with abx ( Zosyn, Zithromax) monitor for signs of infections (Fever , WBC) Follow up on BC from 09/27 Check sputum cx, strep pneumonia and Legionella urinary Ag Heme: Monitor CBC Endo: SSI for glycemic control GI prophylaxis - on Pepcid 20mg Q12 DVT prophylaxis- on Lovenox 60mg Q12 Level 3 Jo Ann Ferguson MD Sep 28, 2016 11:59
--- NOTE | 2016-09-28 14:29 | EKG ---
Date Performed: 09/28/2016 Time Performed: 09:29:12 PTAGE: 61 years EKG: Sinus rhythm NONSPECIFIC T-WAVE ABNORMALITY BORDERLINE ECG Since PREVIOUS TRACING , no significant change noted PREVIOUS TRACIN09/28/2016 03.33 DOCTOR: Caleb Whyte Interpretating Date/Time 09/28/2016 14:28:41
--- NOTE | 2016-09-28 16:32 | RADRPT ---
EXAM DATE/TIME: 09/28/2016 14:14 [place] COMPARISON: No previous studies available for comparison. INDICATIONS : Abnormal labs. MEDICAL HISTORY : Substance abuse. Depression. SURGICAL HISTORY : Right shoulder surgery. ENCOUNTER: Initial ACUITY: 1 day PAIN SCORE: 2/10 LOCATION: Bilateral upper quadrant MEASUREMENTS: LIVER: 16.2 cm length COMMON DUCT: 6 mm RIGHT KIDNEY: 12.1 x 3.9 x 4.3 cm SPLEEN: 11.1 cm length FINDINGS: LIVER: Normal echotexture without focal lesion or ductal dilatation. COMMON DUCT: No intraluminal mass or stone visualized. GALLBLADDER: Gallbladder is distended with wall thickening measuring up to 7 mm. No stones are present. There is t race pericholecystic fluid. Sonographic Messer's sign is negative. PANCREAS: The visualized portions are within normal limits. RIGHT KIDNEY: No hydronephrosis, stone or mass. There is an anechoic avascular lesion that is partially visualized at the upper pole measuring 4.9 cm. SPLEEN: No focal lesion. CONCLUSION: 1. Gallbladder is distended with wall thickening and pericholecystic fluid. However, no gallstones ar e present. Additionally, sonographic Messer's sign is negative suggesting against acute cholecystitis . 2. Visualized portion of the 4.9 cm right upper pole renal cyst appears simple. Junito David MD on September 28, 2016 at 16:27 Board Certified Radiologist. This report was verified electronically.
[2016-09-28] MEDS: HEPARIN-D5W INJ 250 ML IV SCH (19:21)
[2016-09-28] MEDS ORDERED: AZITHROMYCIN INJ 500 MG in SODIUM CHLOR 0.9% 250 ML INJ 250 ML IV SCH (20:00)
[2016-09-28 20:14] LABS: HEMATOCRIT 25.4 % (35.0-46.0); MEAN CELL VOLUME 94.8 FL (80.0-100.0); MEAN CORPUSCULAR HEMOGLOBIN 31.4 PG (27.0-34.0); MEAN CORPUSCULAR HGB CONC 33.1 % (32.0-36.0); PLATELET COUNT 166 TH/MM3 (150-450); RED BLOOD COUNT 2.68 MIL/MM3 (4.00-5.30); RED CELL DISTRIBUTION WIDTH 12.7 % (11.6-17.2); REVIEW FLAG FINAL; WHITE BLOOD COUNT 8.1 TH/MM3 (4.0-11.0)
[2016-09-28 20:35] LABS: INTERNATIONAL NORMALIZED RATIO 1.1 RATIO; PROTHROMBIN TIME - PATIENT 12.7 SEC (9.8-11.6)
[2016-09-29] VITALS (26 sets, daily range): BP systolic 115–178; BP diastolic 63–95; PULSE 50–67; RESP 14–25; TEMP 97.8–99; O2SAT 94–99
[2016-09-29] MEDS: SODIUM CHLOR 0.9% 1000 ML INJ 1,000 ML IV SCH (01:31)
[2016-09-29] MEDS: CHLORHEXIDINE GLUCONATE 2 % 1 PACK (2 CLOTHS) TOP SCH (04:00)
[2016-09-29] MEDS: PIPERACIL-TAZO 3.375 GM PREMIX 50 ML IV SCH (05:21)
[2016-09-29 05:27] LABS: AUTOMATED NEUTROPHIL # 6.3 TH/MM3 (1.8-7.7); BASOPHIL % 0.2 % (0.0-2.0); EOSINOPHIL % 0.5 % (0.0-4.0); HEMATOCRIT 26.4 % (35.0-46.0); HEMO FLAGS DIFF FINAL; LYMPH % 20.1 % (9.0-44.0); LYMPHOCYTE # 1.8 TH/MM3 (1.0-4.8); MEAN CELL VOLUME 94.5 FL (80.0-100.0); MEAN CORPUSCULAR HEMOGLOBIN 32.1 PG (27.0-34.0); MONO % 6.7 % (0.0-8.0); NEUT % 72.5 % (16.0-70.0); PLATELET COUNT 189 TH/MM3 (150-450); WHITE BLOOD COUNT 8.8 TH/MM3 (4.0-11.0)
[2016-09-29 06:09] LABS: ALKALINE PHOSPHATASE 58 U/L (45-117); ALT (GPT) 40 U/L (10-53); ANION GAP 10 MEQ/L (5-15); AST (GOT) 51 U/L (15-37); BICARBONATE 22.3 MEQ/L (21.0-32.0); BLOOD UREA NITROGEN 12 MG/DL (7-18); CHLORIDE 111 MEQ/L (98-107); GLOMERULAR FILTRATION RATE 91 ML/MIN (>89); MAGNESIUM 1.9 MG/DL (1.5-2.5); POTASSIUM 3.7 MEQ/L (3.5-5.1); SODIUM (NA) 143 MEQ/L (136-145); TOTAL BILIRUBIN ADULT 0.3 MG/DL (0.2-1.0)
[2016-09-29] MEDS: DOCUSATE SODIUM 50 MG/SENNA 8.6 MG TAB PO SCH ×2 (08:34→20:29)
[2016-09-29] MEDS: ASPIRIN 325 MG TAB PO SCH (08:34)
[2016-09-29] MEDS: METOPROLOL TARTRATE 25 MG TAB PO SCH ×2 (08:34→20:29)
[2016-09-29] MEDS: FAMOTIDINE 20 MG/2 ML VIAL IV PUSH SCH (08:35)
[2016-09-29] MEDS: SODIUM CHLORIDE 0.9% FLUSH 10 ML FLUSH SCH ×2 (09:00→20:29)
[2016-09-29] MEDS ORDERED: NITROGLYCERIN 2% OINT 1 GM PACKET TOPICAL PRN (09:30)
--- NOTE | 2016-09-29 09:42 | HHI.CCPN ---
Subjective Remarks/Hospital Course 61 year-old female arrives by EMS. History is obtained from the chart due to patient's altered mental status. The patient was found at home by her friend at approximately 6 PM. At 10 AM in the morning the patient's friend had left the patient's house. At that time the patient was sitting in her recliner. When the friend returned this evening the patient had essentially not moved and the patient's mental status was quite poor with EMS reporting a GCS of 3 on scene and a blood pressure of 80/60 with a heart rate in the 60s. The patient received 2 mg of Narcan and the heart rate increased to about 110 and the blood pressure increased to about 120/80. The patient underwent shoulder surgery yesterday. She does not recall the name of the orthopedic surgeon or the nature of the surgery. EMS reports there was a prescription for Lortab written yesterday for 60 tablets with 48 remaining. 09/28 Patient is lying in bed in NAD. Afebrile. Subjective 09/29: Afebrile. Currently complaining of headache. She says this is like a migraine headaches. Complaints of nausea. Complaints of chronic abdominal pain. Not acute. Patient states usually takes Vicodin for migraine headaches. Objective Vital Signs Date Time Temp Pulse Resp B/P Pulse Ox O2 Delivery O2 Flow Rate FiO2 09/29/16 09:15 98 09/29/16 08:00 62 09/29/16 08:00 98.6 16 166/81 09/28/16 20:26 Nasal Cannula 2.00 Intake and Output 09/28/16 09/28/16 09/29/16 08:00 16:00 00:00 Intake Total 1112 ml 1102 ml 859 ml Output Total 1500 ml 460 ml 350 ml Balance -388 ml 642 ml 509 ml Result Diagram: 09/29/16 0400 09/29/16 0400 Other Results Microbiology Date/Time Procedure Status Source Growth 09/27/16 20:00 Gram Stain - Final Resulted Cerebral Spinal Fluid Lumbar Puncture 09/27/16 20:00 CSF Culture - Preliminary Resulted Cerebral Spinal Fluid Lumbar Puncture NO GROWTH IN 48 HOURS. 09/27/16 19:15 Aerobic Blood Culture - Preliminary Resulted Blood Peripheral NO GROWTH IN 1 DAY 09/27/16 19:15 Anaerobic Blood Culture - Preliminary Resulted Blood Peripheral NO GROWTH IN 1 DAY Imaging Last Impressions Liver Ultrasound 09/28/16 0000 Signed Impressions: Service Date/Time: Wednesday, September 28, 2016 14:14 - CONCLUSION: 1. Gallbladder is distended with wall thickening and pericholecystic fluid. However, no gallstones are present. Additionally, sonographic Messer's sign is negative suggesting against acute cholecystitis. 2. Visualized portion of the 4.9 cm right upper pole renal cyst appears simple. Junito David MD Chest X-Ray 09/28/16 0000 Signed Impressions: Service Date/Time: Wednesday, September 28, 2016 03:56 - CONCLUSION: 1. Left lower lobe atelectasis versus pneumonia. There has been no significant change when compared to the prior exam. Caleb Mendes MD Head CT 09/27/[id number] Signed Impressions: Service Date/Time: September 19:27 - CONCLUSION: Negative noncontrast CT brain. Alex Lara MD Objective Remarks GENERAL: Patient is 61 yo female, lying in bed in NAD SKIN: Warm and dry. No rash HEAD: Normocephalic. Atraumatic EYES: No scleral icterus. No injection or drainage. NECK: Supple, trachea midline. No JVD or lymphadenopathy. CARDIOVASCULAR: Regular rate and rhythm with S1, S2 no S4. Without murmurs, gallops, or rubs. RESPIRATORY: Breath sounds equal bilaterally. No accessory muscle use. GASTROINTESTINAL: Abdomen soft, non-tender, nondistended. MUSCULOSKELETAL: No significant peripheral edema. . Right upper extremity with minimal weepage A/P Assessment and Plan 1) Resp Insuff 2)Altered mental status - Lortab overdose - Status post right shoulder surgery 3)LLL atelectasis vs pneumonia 4)ADIN resolved 5)Leukocytosis 6)NSTEMI 7)Elevated LFT 8) migraine headache Plan Neuro: Monitor neuro status UDS+ Opiates, benzos. 09/27 CT brain- no acute process 09/27 LP- clear CSF, 3 WBC Plan for Lortabs 5/325 one tablet when necessary pain 1-5/morphine sulfate 2 g every 2 hours when necessary pain 6-10 Pulm: Continue with oxygen keep sat >92% Bronchodilators as needed Chest x-ray 09/28 revealed left lower lobe atelectasis CV: Monitor HR and BP keep MAP>65mmHg Monitor trop, check 2D echo to eval LV function. Continue with Lopressor 25 mg BID, ASA 325 mg daily, upper and drip Hold Lipitor for elevated LFT's. Discussed with Dr. Holley for possible cath on Sunday 10/01 Renal/: Monitor renal function, I/O's, electrolytes replacement as needed. Discontinue normal saline today GI: On PO diet, Pepcid 20mg Q12 Monitor LFT's, check US liver - revealed distended gallbladder without cholelithiasis. Negative Messer sign. ID Discontinue with abx ( Zosyn, Zithromax) monitor for signs of infections (Fever , WBC) Follow up on BC from 09/27 no growth to date Heme: Monitor CBC Endo: SSI for glycemic control GI prophylaxis - on Pepcid 20mg Q12 DVT prophylaxis- on heparin drip Level 2 Patient is stable from a critical care medicine standpoint. Transferred to [facility] and assign care to hospitalist in a.m. 09/30. Don Jmienez MD Sep 29, 2016 09:42
[2016-09-29] MEDS ORDERED: ONDANSETRON HCL 4 MG/2 ML VIAL IV PRN (10:00)
--- NOTE | 2016-09-29 10:16 | PD.CARD.PN ---
Subjective Subjective Remarks c/o of total body pain and headache, asking for vicodin Objective Medications Administered Medications Medications (Trade) Dose Ordered Sig/Evonne Route PRN Reason Start Time Stop Time Status Last Admin Dose Admin Sodium Chloride (NS Flush) 2 ml BID .XX 09/28/16 09:00 09/28/16 21:31 Acetaminophen (Tylenol) 650 mg Q6H PRN PO FEVER >101F 09/27/16 22:00 09/29/16 01:29 Chlorhexidine Gluconate (Chlorhexidine 2% Cloth) 3 pack Taper DAILY@04 TOP 09/28/16 04:00 09/24/17 03:59 09/29/16 04:00 Senna/Docusate Sodium (Jade-Colace) 1 tab BID PO 09/28/16 09:00 09/29/16 08:34 Aspirin (Aspirin) 325 mg DAILY PO 09/28/16 02:30 09/29/16 08:34 Atorvastatin Calcium 80 mg 80 mg DAILY PO 09/28/16 02:30 Hold 09/28/16 12:47 Heparin Sodium/ Dextrose (Heparin-D5W Inj) 250 ml @ 0 mls/hr TITRATE IV 09/28/16 17:00 09/28/16 19:21 Vital Signs / I&O Vital Signs Date Time Temp Pulse Resp B/P Pulse Ox O2 Delivery O2 Flow Rate FiO2 09/29/16 09:15 98 09/29/16 08:00 62 09/29/16 08:00 98.6 63 16 166/81 98 09/29/16 06:00 60 09/29/16 04:00 63 09/29/16 04:00 98.9 63 16 160/73 98 09/29/16 02:00 64 09/29/16 00:00 99.0 60 16 116/63 98 09/29/16 00:00 60 09/28/16 22:00 70 09/28/16 20:26 94 Nasal Cannula 2.00 09/28/16 20:00 73 09/28/16 20:00 98.9 66 18 120/60 95 09/28/16 18:00 69 09/28/16 16:00 67 09/28/16 16:00 98.9 67 18 126/58 98 09/28/16 14:00 63 09/28/16 12:00 99.0 63 20 115/58 99 8/4/17 12:00 63 I/O 09/28/16 09/28/16 09/28/16 09/29/16 09/29/16 09/29/16 07:00 15:00 23:00 07:00 15:00 23:00 Intake Total 1112 ml 1102 ml 859 ml 767 ml Output Total 1500 ml 460 ml 350 ml 325 ml Balance -388 ml 642 ml 509 ml 442 ml Intake Oral 240 ml 0 ml 50 ml IV Total 872 ml 1102 ml 859 ml 717 ml Output Urine Total 1500 ml 460 ml 350 ml 325 ml # Bowel Movements 0 0 Physical Exam GENERAL: This is a well-nourished, well-developed patient, in no apparent distress. CARDIOVASCULAR: Regular rate and rhythm without murmurs, gallops, or rubs. RESPIRATORY: Clear to auscultation. Breath sounds equal bilaterally. No wheezes , rales, or rhonchi. GASTROINTESTINAL: Abdomen soft, non-tender, nondistended. Normal active bowel sounds MUSCULOSKELETAL: Extremities without clubbing, cyanosis, or edema. NEURO: Alert & Oriented x4 to person, place, time, situation. Moves all ext x4 Laboratory Laboratory Tests Test 09/28/16 09/28/16 09/29/16 14:56 19:30 04:00 Ammonia 32 MCMOL/L Troponin I 2.19 NG/ML 2.37 NG/ML White Blood Count 8.1 TH/MM3 8.8 TH/MM3 Red Blood Count 2.68 MIL/MM3 2.80 MIL/MM3 Hemoglobin 8.4 GM/DL 9.0 GM/DL Hematocrit 25.4 % 26.4 % Mean Corpuscular Volume 94.8 FL 94.5 FL Mean Corpuscular Hemoglobin 31.4 PG 32.1 PG Mean Corpuscular Hemoglobin 33.1 % 34.0 % Concent Red Cell Distribution Width 12.7 % 13.0 % Platelet Count 166 TH/MM3 189 TH/MM3 Mean Platelet Volume 8.3 FL 8.6 FL Prothrombin Time 12.7 SEC Prothromb Time International 1.1 RATIO Ratio Activated Partial 35.0 SEC 52.0 SEC Thromboplast Time Neutrophils (%) (Auto) 72.5 % Lymphocytes (%) (Auto) 20.1 % Monocytes (%) (Auto) 6.7 % Eosinophils (%) (Auto) 0.5 % Basophils (%) (Auto) 0.2 % Neutrophils # (Auto) 6.3 TH/MM3 Lymphocytes # (Auto) 1.8 TH/MM3 Monocytes # (Auto) 0.6 TH/MM3 Eosinophils # (Auto) 0.0 TH/MM3 Basophils # (Auto) 0.0 TH/MM3 CBC Comment DIFF FINAL Differential Comment Sodium Level 143 MEQ/L Potassium Level 3.7 MEQ/L Chloride Level 111 MEQ/L Carbon Dioxide Level 22.3 MEQ/L Anion Gap 10 MEQ/L Blood Urea Nitrogen 12 MG/DL Creatinine 0.66 MG/DL Estimat Glomerular Filtration 91 ML/MIN Rate Random Glucose 96 MG/DL Calcium Level 7.7 MG/DL Phosphorus Level 1.4 MG/DL Magnesium Level 1.9 MG/DL Total Bilirubin 0.3 MG/DL Aspartate Amino Transf 51 U/L (AST/SGOT) Alanine Aminotransferase 40 U/L (ALT/SGPT) Alkaline Phosphatase 58 U/L Total Protein 5.3 GM/DL Albumin 2.3 GM/DL Imaging Last Impressions Liver Ultrasound 09/28/16 0000 Signed Impressions: Service Date/Time: Wednesday, September 28, 2016 14:14 - CONCLUSION: 1. Gallbladder is distended with wall thickening and pericholecystic fluid. However, no gallstones are present. Additionally, sonographic Messer's sign is negative suggesting against acute cholecystitis. 2. Visualized portion of the 4.9 cm right upper pole renal cyst appears simple. Junito David MD Chest X-Ray 09/28/16 0000 Signed Impressions: Service Date/Time: Wednesday, September 28, 2016 03:56 - CONCLUSION: 1. Left lower lobe atelectasis versus pneumonia. There has been no significant change when compared to the prior exam. Caleb Mendes MD Head CT 09/27/16 1914 Signed Impressions: Service Date/Time: September 19:27 - CONCLUSION: Negative noncontrast CT brain. Alex Lara MD Assessment and Plan Problem List: (1) Elevated troponin I level Assessment and Plan: Dr. Holley plans on cathing on saturday, continue current medical mgt. Kota Ann MD Sep 29, 2016 10:16
[2016-09-29] MEDS: MORPHINE SULFATE 4 MG/ML INJ IV PRN (10:49)
[2016-09-29] MEDS ORDERED: POTASSIUM PHOSPHATE INJ 30 MMOL in SODIUM CHLOR 0.9% 250 ML INJ 250 ML IV ONE (12:00)
--- NOTE | 2016-09-29 13:15 | EKG ---
Date Performed: 09/28/2016 Time Performed: 20:37:17 PTAGE: 61 years EKG: Sinus rhythm NONSPECIFIC T-WAVE ABNORMALITY BORDERLINE ECG PREVIOUS TRACING : 09/28/2016 13.31 Since previous tracing, no significant change noted DOCTOR: Rosalinda Bejarano Interpretating Date/Time 09/29/2016 13:13:19
--- NOTE | 2016-09-29 13:15 | EKG ---
Date Performed: 09/28/2016 Time Performed: 13:31:36 PTAGE: 61 years EKG: Sinus rhythm NONSPECIFIC T-WAVE ABNORMALITY BORDERLINE ECG PREVIOUS TRACING : 09/28/2016 09.29 Since previous tracing, no significant change noted DOCTOR: Rosalinda Bejarano Interpretating Date/Time 09/29/2016 13:13:06
[2016-09-29] MEDS: hydrALAZINE HCL 20 MG/ML VIAL IV PUSH PRN ×2 (13:22→23:59)
[2016-09-29] MEDS: oxyCODONE/ACETAMINOPHEN 5 MG/325 MG TAB PO PRN ×3 (13:25→22:11)
--- NOTE | 2016-09-29 14:32 | ECHRPT ---
Indication: CHEST PAIN CONCLUSIONS Normal left ventricular size. Wall thickness is normal. The left ventricular systolic function is low normal with an estimated ejection fraction in the rang e of 50- 55%. No regional wall motion abnormalities are present. The right ventricle is mildly dilated. The right atrial size is jfun-wa-idzhmoivfa dilated. Cneqj-ix-naxx mitral valve regurgitation. Aortic valve sclerosis is present. No aortic valve stenosis. Esle-kp-ycixqdfz aortic valve regurgitation. There is estimated mild pulmonary hypertension present (range 40-50 mmHg). There is mild to moderate tricuspid valve regurgitation. Inferior vena cava with poor inspiration collapse consistent with elevated right atrial pressure. BP: 101 / 59 HR: 62 Rhythm: Sinus MEASUREMENTS (Male / Female) Normal Values Technical Quality:Fair 2D ECHO LV Diastolic Diameter PLAX 4.1 cm 4.2 - 5.9 / 3.9 - 5.3 cm LV Systolic Diameter PLAX 3.2 cm IVS Diastolic Thickness 1.0 cm 0.6 - 1.0 / 0.6 - 0.9 cm LVPW Diastolic Thickness 1.0 cm 0.6 - 1.0 / 0.6 - 0.9 cm LV Relative Wall Thickness 0.5 LVOT Diameter 2.0 cm Aortic Root Diameter 3.0 cm LA Systolic Diameter LX 2.8 cm 3.0 - 4.0 / 2.7 - 3.8 cm M-MODE AV Cusp Separation MM 2.0 cm DOPPLER AV Peak Velocity 150.0 cm/s AV Peak Gradient 9.0 mmHg AV Mean Gradient 5.0 mmHg AV Velocity Time Integral 37.6 cm AI Peak Velocity 497.0 cm/s AI Peak Gradient 98.8 mmHg AI Pressure Half Time 589.0 ms LVOT Peak Velocity 86.5 cm/s LVOT Peak Gradient 3.0 mmHg LVOT Velocity Time Integral 18.9 cm LVOT Cardiac Index 2154.7 cm/minm AV Area Cont Eq vti 1.6 cm AV Area Cont Eq pk 1.8 cm Mitral E Point Velocity 72.6 cm/s Mitral A Point Velocity 87.9 cm/s Mitral E to A Ratio 0.8 TR Peak Velocity 271.0 cm/s TR Peak Gradient 29.4 mmHg PV Peak Velocity 57.9 cm/s PV Peak Gradient 1.3 mmHg FINDINGS LEFT VENTRICLE Normal left ventricular size. Wall thickness is normal. The left ventricular systolic function is low normal with an estimated ejection fraction in the rang e of 50- 55%. No regional wall motion abnormalities are present. Left ventricular diastolic function parameters are normal. RIGHT VENTRICLE The right ventricle is mildly dilated. LEFT ATRIUM The left atrial size is normal. RIGHT ATRIUM The right atrial size is fetz-nu-ejjzhbmrsr dilated. ATRIAL SEPTUM Normal atrial septal thickness without atrial level shunting by limited color doppler interrogation. AORTA The aortic root and proximal ascending aorta are normal in size on limited imaging. MITRAL VALVE Structurally normal mitral valve. Knfea-uz-nrvy mitral valve regurgitation. AORTIC VALVE Aortic valve sclerosis is present. No aortic valve stenosis. Abuo-co-cwaxfxxp aortic valve regurgitation. TRICUSPID VALVE There is estimated mild pulmonary hypertension present (range 40-50 mmHg). There is mild to moderate tricuspid valve regurgitation. PULMONARY VALVE The pulmonary valve is not well visualized. VESSELS Inferior vena cava with poor inspiration collapse consistent with elevated right atrial pressure. PERICARDIUM No pericardial effusion. Kota Ann MD (Electronically Signed) Final Date:29 September 2016 14:31
[2016-09-29 15:46] LABS: APTT (PATIENT) 46.7 SEC (24.3-30.1)
[2016-09-29] MEDS: FAMOTIDINE 20 MG TAB PO SCH (20:29)
[2016-09-29] MEDS: HEPARIN-D5W INJ 250 ML IV SCH (23:58)
[2016-09-30] VITALS (25 sets, daily range): BP systolic 130–166; BP diastolic 77–89; PULSE 56–79; RESP 16–20; TEMP 98.4–99.2; O2SAT 94–97
[2016-09-30] MEDS: CHLORHEXIDINE GLUCONATE 2 % 1 PACK (2 CLOTHS) TOP SCH (00:15)
[2016-09-30] MEDS: ONDANSETRON HCL 4 MG/2 ML VIAL IV PRN ×2 (00:57→12:42)
[2016-09-30] MEDS: hydrALAZINE HCL 20 MG/ML VIAL IV PUSH PRN (04:19)
[2016-09-30] MEDS: MORPHINE SULFATE 4 MG/ML INJ IV PRN ×3 (04:19→15:32)
[2016-09-30 05:29] LABS: APTT (PATIENT) 38.1 SEC (24.3-30.1)
[2016-09-30 05:36] LABS: ALT (GPT) 52 U/L (10-53); ANION GAP 11 MEQ/L (5-15); AST (GOT) 52 U/L (15-37); BICARBONATE 23.9 MEQ/L (21.0-32.0); BLOOD UREA NITROGEN 7 MG/DL (7-18); CHLORIDE 106 MEQ/L (98-107); GLOMERULAR FILTRATION RATE 153 ML/MIN (>89); MAGNESIUM 1.8 MG/DL (1.5-2.5); POTASSIUM 3.6 MEQ/L (3.5-5.1); SODIUM (NA) 141 MEQ/L (136-145)
[2016-09-30 05:39] LABS: ALKALINE PHOSPHATASE 70 U/L (45-117); TOTAL BILIRUBIN ADULT 0.4 MG/DL (0.2-1.0)
[2016-09-30] MEDS: FAMOTIDINE 20 MG TAB PO SCH ×2 (09:00→20:01)
[2016-09-30] MEDS: DOCUSATE SODIUM 50 MG/SENNA 8.6 MG TAB PO SCH ×3 (09:00→20:19)
[2016-09-30] MEDS: SODIUM CHLORIDE 0.9% FLUSH 10 ML FLUSH SCH ×2 (09:00→20:02)
[2016-09-30] MEDS: ASPIRIN 325 MG TAB PO SCH (09:00)
[2016-09-30] MEDS: METOPROLOL TARTRATE 25 MG TAB PO SCH ×2 (09:00→20:02)
--- NOTE | 2016-09-30 11:41 | PD.CARD.PN ---
Subjective Subjective Remarks no cp/sob Objective Medications Administered Medications Medications (Trade) Dose Ordered Sig/Evonne Route PRN Reason Start Time Stop Time Status Last Admin Dose Admin Sodium Chloride (NS Flush) 2 ml BID .XX 09/28/16 09:00 09/29/16 20:29 Acetaminophen (Tylenol) 650 mg Q6H PRN PO FEVER >101F 09/27/16 22:00 09/29/16 01:29 Ondansetron HCl (Zofran Inj) 4 mg Q6H PRN IV NAUSEA OR VOMITING 09/27/16 22:00 09/30/16 00:57 Chlorhexidine Gluconate (Chlorhexidine 2% Cloth) 3 pack Taper DAILY@04 TOP 09/28/16 04:00 09/24/17 03:59 09/29/16 04:00 Senna/Docusate Sodium (Jade-Colace) 1 tab BID PO 09/28/16 09:00 09/29/16 20:29 Aspirin (Aspirin) 325 mg DAILY PO 09/28/16 02:30 09/29/16 08:34 Atorvastatin Calcium 80 mg 80 mg DAILY PO 09/28/16 02:30 Hold 09/28/16 12:47 Heparin Sodium/ Dextrose (Heparin-D5W Inj) 250 ml @ 0 mls/hr TITRATE IV 09/28/16 17:00 09/29/16 23:58 Metoprolol Tartrate (Lopressor) 25 mg Q12HR PO 09/29/16 21:00 09/29/16 20:29 Hydralazine HCl (Apresoline Inj) 10 mg Q2HR PRN IV PUSH SBP>160, DBP>90 09/29/16 09:30 09/30/16 04:19 Oxycodone/ Acetaminophen (Percocet 5-325 Mg) 1 tab Q4H PRN PO PAIN SCALE 1 TO 5 09/29/16 09:30 09/29/16 22:11 Morphine Sulfate (Morphine Inj) 2 mg Q2H PRN IV PAIN SCALE 6 TO 10 09/29/16 09:30 09/30/16 06:26 Famotidine (Pepcid) 20 mg Q12HR PO 09/29/16 21:00 09/29/16 20:29 Vital Signs / I&O Vital Signs Date Time Temp Pulse Resp B/P Pulse Ox O2 Delivery O2 Flow Rate FiO2 09/30/16 11:00 60 09/30/16 11:00 98.8 79 18 157/83 95 09/30/16 11:00 95 Nasal Cannula 2.00 09/30/16 10:00 70 09/30/16 09:00 66 09/30/16 08:00 66 09/30/16 07:00 98.4 72 18 149/83 97 09/30/16 07:00 73 09/30/16 07:00 97 Nasal Cannula 2.00 09/30/16 05:00 62 09/30/16 04:51 68 130/78 09/30/16 04:24 16 09/30/16 04:00 98.8 74 16 165/87 97 09/30/16 04:00 Nasal Cannula 2.00 09/30/16 04:00 59 09/30/16 03:00 64 09/30/16 02:00 72 09/30/16 01:00 76 09/30/16 00:00 56 09/30/16 00:00 Nasal Cannula 2.00 09/30/16 00:00 98.9 60 16 166/89 97 09/29/16 23:00 58 09/29/16 22:00 62 09/29/16 21:00 60 09/29/16 20:00 Nasal Cannula 2.00 09/29/16 20:00 60 09/29/16 20:00 98.0 67 16 159/84 99 09/29/16 19:00 64 09/29/16 18:15 61 09/29/16 16:08 50 09/29/16 16:08 98 Nasal Cannula 2.00 09/29/16 15:00 98.6 56 17 115/74 98 09/29/16 15:00 98 Nasal Cannula 2.00 09/29/16 15:00 51 09/29/16 14:30 19 09/29/16 14:00 55 09/29/16 13:34 147/75 09/29/16 13:15 97.8 52 17 178/95 96 09/29/16 13:15 96 Nasal Cannula 2.00 09/29/16 13:15 52 09/29/16 12:30 60 14 143/71 99 09/29/16 12:00 61 09/29/16 12:00 60 16 162/87 97 09/29/16 12:00 98.6 61 16 143/71 98 I/O 09/29/16 09/29/16 09/29/16 09/30/16 09/30/16 09/30/16 07:00 15:00 23:00 07:00 15:00 23:00 Intake Total 767 ml 540 ml 423 ml Output Total 325 ml 550 ml 1000 ml Balance 442 ml -10 ml -577 ml Intake Oral 50 ml 240 ml 360 ml IV Total 717 ml 300 ml 63 ml Output Urine Total 325 ml 550 ml 1000 ml # Bowel Movements 0 0 Physical Exam GENERAL: This is a well-nourished, well-developed patient, in no apparent distress. CARDIOVASCULAR: Regular rate and rhythm without murmurs, gallops, or rubs. RESPIRATORY: Clear to auscultation. Breath sounds equal bilaterally. No wheezes , rales, or rhonchi. GASTROINTESTINAL: Abdomen soft, non-tender, nondistended. Normal active bowel sounds MUSCULOSKELETAL: Extremities without clubbing, cyanosis, or edema. NEURO: Alert & Oriented x4 to person, place, time, situation. Moves all ext x4 Laboratory Laboratory Tests Test 09/29/16 09/30/16 14:52 04:25 Activated Partial 46.7 SEC 38.1 SEC Thromboplast Time Sodium Level 141 MEQ/L Potassium Level 3.6 MEQ/L Chloride Level 106 MEQ/L Carbon Dioxide Level 23.9 MEQ/L Anion Gap 11 MEQ/L Blood Urea Nitrogen 7 MG/DL Creatinine 0.42 MG/DL Estimat Glomerular Filtration 153 ML/MIN Rate Random Glucose 99 MG/DL Calcium Level 8.3 MG/DL Phosphorus Level 2.0 MG/DL Magnesium Level 1.8 MG/DL Total Bilirubin 0.4 MG/DL Aspartate Amino Transf 52 U/L (AST/SGOT) Alanine Aminotransferase 52 U/L (ALT/SGPT) Alkaline Phosphatase 70 U/L Troponin I 0.97 NG/ML Total Protein 6.3 GM/DL Albumin 2.7 GM/DL Imaging Last Impressions Liver Ultrasound 09/28/16 0000 Signed Impressions: Service Date/Time: Wednesday, September 28, 2016 14:14 - CONCLUSION: 1. Gallbladder is distended with wall thickening and pericholecystic fluid. However, no gallstones are present. Additionally, sonographic Messer's sign is negative suggesting against acute cholecystitis. 2. Visualized portion of the 4.9 cm right upper pole renal cyst appears simple. Junito David MD Chest X-Ray 09/28/16 0000 Signed Impressions: Service Date/Time: Wednesday, September 28, 2016 03:56 - CONCLUSION: 1. Left lower lobe atelectasis versus pneumonia. There has been no significant change when compared to the prior exam. Caleb Mendes MD Head CT 09/27/16 1914 Signed Impressions: Service Date/Time: September 19:27 - CONCLUSION: Negative noncontrast CT brain. Alex Lara MD Assessment and Plan Problem List: (1) Elevated troponin I level Assessment and Plan: Dr. Holley plans on cathing on saturday, continue current medical mgt. Kota Ann MD Sep 30, 2016 11:41
--- NOTE | 2016-09-30 12:19 | HHI.PR ---
Subjective Remarks [place] of care: Records have been reviewed from this admission as well as from interview of the patient and review of the [facility] EHR Patient is a 61-year-old female with history of bipolar disorder, general anxiety disorder, hypothyroid. On Tuesday, September 26, 2006 patient underwent orthopedic procedure with Dr. Guerrero Ng. Patient had removal of left shoulder hardware (plate and screw), lysis of adhesions, and repair of small right rotator cuff tear. On day of admission, patient was found at home to be hypotensive, altered mental status, GCS of 3. Patient given Narcan in the field with improvement of her vitals. Per records patient had possibly taken 12 of the Lortabs prescribed the day prior. Pt interviewed and examined together with nurse hCu. Objective Vitals Vital Signs Date Time Temp Pulse Resp B/P Pulse Ox O2 Delivery O2 Flow Rate FiO2 09/30/16 11:00 60 09/30/16 11:00 98.8 79 18 157/83 95 09/30/16 11:00 95 Nasal Cannula 2.00 09/30/16 10:00 70 09/30/16 09:00 66 09/30/16 08:00 66 09/30/16 07:00 98.4 72 18 149/83 97 09/30/16 07:00 73 09/30/16 07:00 97 Nasal Cannula 2.00 09/30/16 05:00 62 09/30/16 04:51 68 130/78 09/30/16 04:24 16 09/30/16 04:00 98.8 74 16 165/87 97 09/30/16 04:00 Nasal Cannula 2.00 09/30/16 04:00 59 09/30/16 03:00 64 09/30/16 02:00 72 09/30/16 01:00 76 09/30/16 00:00 56 09/30/16 00:00 Nasal Cannula 2.00 09/30/16 00:00 98.9 60 16 166/89 97 09/29/16 23:00 58 09/29/16 22:00 62 09/29/16 21:00 60 09/29/16 20:00 Nasal Cannula 2.00 09/29/16 20:00 60 09/29/16 20:00 98.0 67 16 159/84 99 09/29/16 19:00 64 09/29/16 18:15 61 09/29/16 16:08 50 09/29/16 16:08 98 Nasal Cannula 2.00 09/29/16 15:00 98.6 56 17 115/74 98 09/29/16 15:00 98 Nasal Cannula 2.00 09/29/16 15:00 51 09/29/16 14:30 19 09/29/16 14:00 55 09/29/16 13:34 147/75 09/29/16 13:15 97.8 52 17 178/95 96 09/29/16 13:15 96 Nasal Cannula 2.00 09/29/16 13:15 52 09/29/16 12:30 60 14 143/71 99 09/29/16 12:00 61 09/29/16 12:00 60 16 162/87 97 09/29/16 12:00 98.6 61 16 143/71 98 09/29/16 09/29/16 09/30/16 15:00 23:00 07:00 Intake Total 540 ml 423 ml Output Total 550 ml 1000 ml Balance -10 ml -577 ml Intake Oral 240 ml 360 ml IV Total 300 ml 63 ml Output Urine Total 550 ml 1000 ml # Bowel Movements 0 Result Diagram: 09/29/16 0400 09/30/16 0425 Imaging Last Impressions Liver Ultrasound 09/28/16 0000 Signed Impressions: Service Date/Time: Wednesday, September 28, 2016 14:14 - CONCLUSION: 1. Gallbladder is distended with wall thickening and pericholecystic fluid. However, no gallstones are present. Additionally, sonographic Messer's sign is negative suggesting against acute cholecystitis. 2. Visualized portion of the 4.9 cm right upper pole renal cyst appears simple. Junito David MD Chest X-Ray 09/28/16 0000 Signed Impressions: Service Date/Time: Wednesday, September 28, 2016 03:56 - CONCLUSION: 1. Left lower lobe atelectasis versus pneumonia. There has been no significant change when compared to the prior exam. Caleb Mendes MD Head CT 09/27/161913 Signed Impressions: Service Date/Time: September 19:27 - CONCLUSION: Negative noncontrast CT brain. Alex Lara MD Objective Remarks Last Impressions Liver Ultrasound 09/28/16 0000 Signed Impressions: Service Date/Time: Wednesday, September 28, 2016 14:14 - CONCLUSION: 1. Gallbladder is distended with wall thickening and pericholecystic fluid. However, no gallstones are present. Additionally, sonographic Messer's sign is negative suggesting against acute cholecystitis. 2. Visualized portion of the 4.9 cm right upper pole renal cyst appears simple. Junito David MD Chest X-Ray 09/28/16 0000 Signed Impressions: Service Date/Time: Wednesday, September 28, 2016 03:56 - CONCLUSION: 1. Left lower lobe atelectasis versus pneumonia. There has been no significant change when compared to the prior exam. Caleb Mendes MD Head CT 09/27/161913 Signed Impressions: Service Date/Time: September 19:27 - CONCLUSION: Negative noncontrast CT brain. Alex Lara MD A/P Problem List: (1) Opioid overdose Status: Acute Plan: - Patient underwent orthopedic surgery 09/26/16 - Patient found in her home hypotensive, AMS, GCS 3. Improvement after narcan - Pt admitted to ICU 09/27 for respiratory insufficiency under CCM - Patient did NOT require intubation - Patient is stable on 2 L by nasal cannula (2) Benzodiazepine abuse Status: Acute Plan: - See above (3) Elevated troponin I level Status: Acute Plan: - Patient's troponins found to be elevated, and peaked at 2.37 - Echocardiogram (09/29/16) - EF 50 - 55% - Inferior vena cava with poor inspiratory collapse consistent with elevated right atrial pressure - Mild to moderate aortic valve regurgitation - Mild to moderate tricuspid valve regurgitation - Planned left heart catheterization 10/01/16 with - Patient refused aspirin and metoprolol today (4) ADIN (acute kidney injury) Status: Acute Plan: - Mild, resolved (5) Elevated LFTs Status: Acute Plan: - Mild, improved - Consider resuming statin therapy upon discharge (6) Pneumonia Status: Acute Plan: - Pneumonia versus atelectasis - Patient has been afebrile since 09/28/16 - Leukocytosis resolved - CXR (09/28/16) --> LLL atelectasis versus pneumonia - Zosyn (09/27 - 09/29/16) (7) S/P hardware removal Status: Acute Plan: - Case discussed with orthopedic surgeon, Dr. Guerrero Ng (09/30/16) - On the day prior to admission, Saturday, September 26, 2016 - Patient underwent removal of right shoulder hardware (plate and screw) lysis of adhesions, repair of small right rotator cuff tear (8) Chronic migraine Status: Acute (9) Bipolar disorder Status: Chronic Plan: - Per outpatient records history of bipolar disorder and generalized anxiety - States that the records are incorrect and that she does NOT have a h/o bipolar disorder, per pt she has depression and anxiety - per pt, she once had lithium toxicity - Continue fluoxetine - Request psychiatry evaluation - Should follow-up with [facility] psychiatry outpatient Problem Qualifiers (1) Opioid overdose: Qualified Code: T40.2X4S - Opioid overdose, undetermined intent, sequela (2) Pneumonia: Qualified Code: J18.9 - Pneumonia of left lung due to infectious organism, unspecified part of lung (3) Bipolar disorder: Qualified Code: F31.9 - Bipolar affective disorder, remission status unspecified Abiodun Adhikari DO Sep 30, 2016 12:19
[2016-09-30] MEDS: oxyCODONE/ACETAMINOPHEN 5 MG/325 MG TAB PO PRN ×3 (13:36→21:47)
[2016-09-30 23:23] LABS: APTT (PATIENT) 44.2 SEC (24.3-30.1)
[2016-10-01] VITALS (26 sets, daily range): BP systolic 140–183; BP diastolic 72–98; PULSE 56–98; RESP 18–20; TEMP 97.9–98.9; O2SAT 94–98
[2016-10-01] MEDS: oxyCODONE/ACETAMINOPHEN 5 MG/325 MG TAB PO PRN ×6 (03:22→23:42)
[2016-10-01] MEDS: hydrALAZINE HCL 20 MG/ML VIAL IV PUSH PRN ×3 (03:22→23:49)
[2016-10-01] MEDS: CHLORHEXIDINE GLUCONATE 2 % 1 PACK (2 CLOTHS) TOP SCH (04:00)
[2016-10-01] MEDS: ONDANSETRON HCL 4 MG/2 ML VIAL IV PRN (05:41)
[2016-10-01 06:54] LABS: HEMATOCRIT 25.6 % (35.0-46.0); MEAN CELL VOLUME 91.2 FL (80.0-100.0); MEAN CORPUSCULAR HEMOGLOBIN 31.3 PG (27.0-34.0); MEAN CORPUSCULAR HGB CONC 34.3 % (32.0-36.0); PLATELET COUNT 271 TH/MM3 (150-450); RED BLOOD COUNT 2.81 MIL/MM3 (4.00-5.30); RED CELL DISTRIBUTION WIDTH 12.6 % (11.6-17.2); REVIEW FLAG FINAL; WHITE BLOOD COUNT 12.4 TH/MM3 (4.0-11.0)
[2016-10-01 06:59] LABS: APTT (PATIENT) 38.5 SEC (24.3-30.1)
[2016-10-01] MEDS: FAMOTIDINE 20 MG TAB PO SCH ×2 (08:15→20:16)
[2016-10-01] MEDS: ASPIRIN 325 MG TAB PO SCH (08:15)
[2016-10-01] MEDS: METOPROLOL TARTRATE 25 MG TAB PO SCH ×2 (08:17→20:16)
[2016-10-01] MEDS: DOCUSATE SODIUM 50 MG/SENNA 8.6 MG TAB PO SCH ×2 (08:18→21:00)
[2016-10-01] MEDS: SODIUM CHLORIDE 0.9% FLUSH 10 ML FLUSH SCH ×2 (08:18→20:16)
--- NOTE | 2016-10-01 08:22 | PD.CARD.PN ---
Subjective Subjective Remarks c/o being cold/hot diarrhea and vomiting (Trace Rush) Objective Vital Signs / I&O Vital Signs Date Time Temp Pulse Resp B/P Pulse Ox O2 Delivery O2 Flow Rate FiO2 10/01/16 07:47 Nasal Cannula 2.00 10/01/16 05:00 62 10/01/16 04:00 74 10/01/16 03:30 Nasal Cannula 2.00 10/01/16 03:30 157/77 10/01/16 03:15 67 18 181/98 96 10/01/16 03:00 62 10/01/16 02:00 66 10/01/16 01:00 62 10/01/16 00:10 Nasal Cannula 2.00 10/01/16 00:00 98.4 63 18 159/87 95 10/01/16 00:00 61 09/30/16 23:00 62 09/30/16 22:02 21 09/30/16 22:00 62 09/30/16 21:00 66 09/30/16 20:15 Nasal Cannula 2.00 09/30/16 20:00 70 09/30/16 20:00 98.4 77 18 162/88 94 09/30/16 19:00 68 09/30/16 18:00 69 09/30/16 17:00 69 09/30/16 16:03 77 09/30/16 15:54 19 09/30/16 15:02 19 09/30/16 15:00 99.2 69 20 150/77 94 09/30/16 15:00 71 09/30/16 15:00 94 Room Air 09/30/16 14:00 58 09/30/16 13:00 61 09/30/16 12:00 62 09/30/16 11:00 60 09/30/16 11:00 98.8 79 18 157/83 95 09/30/16 11:00 95 Nasal Cannula 2.00 09/30/16 10:00 70 09/30/16 09:00 66 I/O 09/30/16 09/30/16 09/30/16 10/01/16 10/01/16 10/01/16 07:00 15:00 23:00 07:00 15:00 23:00 Intake Total 423 ml 340 ml 240 ml Output Total 1000 ml 1125 ml 1550 ml Balance -577 ml -785 ml -1310 ml Intake Oral 360 ml 240 ml 240 ml IV Total 63 ml 100 ml Output Urine Total 1000 ml 1125 ml 1550 ml # Bowel Movements 0 1 4 Physical Exam GENERAL: Well-nourished, well-developed patient in no apparent distress. NECK: No JVD. No carotid bruit. CARDIOVASCULAR: Regular rate and rhythm. S1/S2 no murmur, rub, or gallop. RESPIRATORY: No accessory muscle use. Clear to auscultation. Breath sounds equal bilaterally. GASTROINTESTINAL: Abdomen soft, non-tender, nondistended. MUSCULOSKELETAL: Extremities without clubbing, cyanosis, or edema. Laboratory Laboratory Tests Test 09/30/16 09/30/16 10/01/16 14:30 22:43 06:04 Activated Partial 44.0 SEC 44.2 SEC 38.5 SEC Thromboplast Time White Blood Count 12.4 TH/MM3 Red Blood Count 2.81 MIL/MM3 Hemoglobin 8.8 GM/DL Hematocrit 25.6 % Mean Corpuscular Volume 91.2 FL Mean Corpuscular Hemoglobin 31.3 PG Mean Corpuscular Hemoglobin 34.3 % Concent Red Cell Distribution Width 12.6 % Platelet Count 271 TH/MM3 Mean Platelet Volume 8.0 FL (Trace Rush) Assessment and Plan Problem List: (1) Elevated troponin I level Assessment and Plan NSTEMI - plan is for coronary angiogram at 3 pm today, further recommendations will depend of that outcome HTN - add SYLVIE-I (Trace Rush) Assessment and Plan NSTEMI - C today. npo afte light breakfast (Marcelo Holley MD) Trace Rush Oct 01, 2016 08:22 Marcelo Holley MD Oct 01, 2016 08:33
[2016-10-01] MEDS: LISINOPRIL 10 MG TAB PO SCH (08:29)
--- NOTE | 2016-10-01 08:58 | HHI.PR ---
Subjective Remarks felt hot/cold Objective Vitals oriented heart reg lung cta abd s/nt ext right shoulder bandaged. Vital Signs Date Time Temp Pulse Resp B/P Pulse Ox O2 Delivery O2 Flow Rate FiO2 10/01/16 07:47 Nasal Cannula 2.00 10/01/16 05:00 62 10/01/16 04:00 74 10/01/16 03:30 Nasal Cannula 2.00 10/01/16 03:30 157/77 10/01/16 03:15 67 18 181/98 96 10/01/16 03:00 62 10/01/16 02:00 66 10/01/16 01:00 62 10/01/16 00:10 Nasal Cannula 2.00 10/01/16 00:00 98.4 63 18 159/87 95 10/01/16 00:00 61 09/30/16 23:00 62 09/30/16 22:02 21 09/30/16 22:00 62 09/30/16 21:00 66 09/30/16 20:15 Nasal Cannula 2.00 09/30/16 20:00 70 09/30/16 20:00 98.4 77 18 162/88 94 09/30/16 19:00 68 09/30/16 18:00 69 09/30/16 17:00 69 09/30/16 16:03 77 09/30/16 15:54 19 09/30/16 15:02 19 09/30/16 15:00 99.2 69 20 150/77 94 09/30/16 15:00 71 09/30/16 15:00 94 Room Air 09/30/16 14:00 58 09/30/16 13:00 61 09/30/16 12:00 62 09/30/16 11:00 60 09/30/16 11:00 98.8 79 18 157/83 95 09/30/16 11:00 95 Nasal Cannula 2.00 09/30/16 10:00 70 09/30/16 09:00 66 09/30/16 09/30/16 10/01/16 15:00 23:00 07:00 Intake Total 340 ml 240 ml Output Total 1125 ml 1550 ml Balance -785 ml -1310 ml Intake Oral 240 ml 240 ml IV Total 100 ml Output Urine Total 1125 ml 1550 ml # Bowel Movements 1 4 Result Diagram: 10/01/16 0604 09/30/16 0425 Imaging Last Impressions Liver Ultrasound 09/28/16 0000 Signed Impressions: Service Date/Time: Wednesday, September 28, 2016 14:14 - CONCLUSION: 1. Gallbladder is distended with wall thickening and pericholecystic fluid. However, no gallstones are present. Additionally, sonographic Messer's sign is negative suggesting against acute cholecystitis. 2. Visualized portion of the 4.9 cm right upper pole renal cyst appears simple. Junito David MD Chest X-Ray 09/28/16 0000 Signed Impressions: Service Date/Time: Wednesday, September 28, 2016 03:56 - CONCLUSION: 1. Left lower lobe atelectasis versus pneumonia. There has been no significant change when compared to the prior exam. Caleb Mendes MD Head CT 09/27/161913 Signed Impressions: Service Date/Time: September 19:27 - CONCLUSION: Negative noncontrast CT brain. Alex Lara MD Objective Remarks Last Impressions Liver Ultrasound 09/28/16 0000 Signed Impressions: Service Date/Time: Wednesday, September 28, 2016 14:14 - CONCLUSION: 1. Gallbladder is distended with wall thickening and pericholecystic fluid. However, no gallstones are present. Additionally, sonographic Messer's sign is negative suggesting against acute cholecystitis. 2. Visualized portion of the 4.9 cm right upper pole renal cyst appears simple. Junito David MD Chest X-Ray 09/28/16 0000 Signed Impressions: Service Date/Time: Wednesday, September 28, 2016 03:56 - CONCLUSION: 1. Left lower lobe atelectasis versus pneumonia. There has been no significant change when compared to the prior exam. Caleb Mendes MD Head CT 09/27/161913 Signed Impressions: Service Date/Time: September 19:27 - CONCLUSION: Negative noncontrast CT brain. Alex Lara MD A/P Problem List: (1) Opioid overdose Status: Acute Plan: - Patient underwent orthopedic surgery 09/26/16 - Patient found in her home hypotensive, AMS, GCS 3. Improvement after narcan - Pt admitted to ICU 09/27 for respiratory insufficiency under CCM - Patient did NOT require intubation - It was felt to be unintentional...psych eval pending. (2) Elevated troponin I level Status: Acute Plan: - Patient's troponins found to be elevated, and peaked at 2.37 - Echocardiogram (09/29/16) - EF 50 - 55% - Inferior vena cava with poor inspiratory collapse consistent with elevated right atrial pressure - Mild to moderate aortic valve regurgitation - Mild to moderate tricuspid valve regurgitation - Planned left heart catheterization today with d/c ravindra (3) Benzodiazepine abuse Status: Acute Plan: - See above (4) ADIN (acute kidney injury) Status: Acute Plan: - Mild, resolved (5) Elevated LFTs Status: Acute Plan: - Mild, improved - Consider resuming statin therapy upon discharge (6) Pneumonia Status: Acute Plan: - Pneumonia versus atelectasis - Patient has been afebrile since 09/28/16 - Leukocytosis resolved - CXR (09/28/16) --> LLL atelectasis versus pneumonia - Zosyn (09/27 - 09/29/16) (7) S/P hardware removal Status: Acute Plan: - Case discussed with orthopedic surgeon, Dr. Guerrero Ng (09/30/16) - On the day prior to admission, Saturday, September 26, 2016 - Patient underwent removal of right shoulder hardware (plate and screw) lysis of adhesions, repair of small right rotator cuff tear f/u after d/c (8) Chronic migraine Status: Acute (9) Bipolar disorder Status: Chronic Plan: - Per outpatient records history of bipolar disorder and generalized anxiety - States that the records are incorrect and that she does NOT have a h/o bipolar disorder, per pt she has depression and anxiety - per pt, she once had lithium toxicity - Continue fluoxetine - psychiatry evaluation pending - Should follow-up with [facility] psychiatry outpatient Problem Qualifiers (1) Opioid overdose: Qualified Code: T40.2X4S - Opioid overdose, undetermined intent, sequela (2) Pneumonia: Qualified Code: J18.9 - Pneumonia of left lung due to infectious organism, unspecified part of lung (3) Bipolar disorder: Qualified Code: F31.9 - Bipolar affective disorder, remission status unspecified Bravo Allison MD Oct 01, 2016 08:58
[2016-10-01] MEDS ORDERED: LOPERAMIDE HCL 2 MG CAP PO PRN (11:30)
--- NOTE | 2016-10-01 11:42 | PD.ORT.PN ---
Subjective Post Op Day #: 5 Subjective Remarks Patient is resting in bed. Patient presents very anxious. Patient is scheduled for a cardiac catheterization today secondary to elevated troponin. Patient states she is having minimal pain to the right shoulder. Patient reports that she does not remember taking too much pain medication after her recent surgery and losing consciousness. Objective Vitals Vital Signs Date Time Temp Pulse Resp B/P Pulse Ox O2 Delivery O2 Flow Rate FiO2 10/01/16 10:28 94 21 10/01/16 09:10 16 10/01/16 08:00 Nasal Cannula 2.00 10/01/16 08:00 98.9 79 20 159/81 97 10/01/16 08:00 78 10/01/16 07:47 Nasal Cannula 2.00 10/01/16 05:00 62 10/01/16 04:00 74 10/01/16 03:30 Nasal Cannula 2.00 10/01/16 03:30 157/77 10/01/16 03:15 67 18 181/98 96 10/01/16 03:00 62 10/01/16 02:00 66 10/01/16 01:00 62 10/01/16 00:10 Nasal Cannula 2.00 10/01/16 00:00 98.4 63 18 159/87 95 10/01/16 00:00 61 09/30/16 23:00 62 09/30/16 22:02 21 09/30/16 22:00 62 09/30/16 21:00 66 09/30/16 20:15 Nasal Cannula 2.00 09/30/16 20:00 70 09/30/16 20:00 98.4 77 18 162/88 94 09/30/16 19:00 68 09/30/16 18:00 69 09/30/16 17:00 69 09/30/16 16:03 77 09/30/16 15:54 19 09/30/16 15:00 99.2 69 20 150/77 94 09/30/16 15:00 71 09/30/16 15:00 94 Room Air 09/30/16 14:00 58 09/30/16 13:00 61 09/30/16 12:00 62 I/O 09/30/16 09/30/16 09/30/16 10/01/16 10/01/16 10/01/16 06:59 14:59 22:59 06:59 14:59 22:59 Intake Total 423 ml 340 ml 240 ml Output Total 1000 ml 1125 ml 1550 ml Balance -577 ml -785 ml -1310 ml Intake Oral 360 ml 240 ml 240 ml IV Total 63 ml 100 ml Output Urine Total 1000 ml 1125 ml 1550 ml # Bowel Movements 0 1 4 Result Diagram: 10/01/16 0604 09/30/16 0425 Procedures Right shoulder removal of deep hardware, proximal humerus Right shoulder open rotator cuff repair with subacromial decompression and excision of adhesions. Objective Remarks Dressing changed to right shoulder. Dressing has mild to moderate serosanguineous drainage. Patient is on Heparin and is having some increased bleeding since being placed on this. There is some localized swelling which could be a hematoma at the incision site. There is mild fluctuance. Surgical clips are intact with no s/s of infection. There is no erythema. Mild ecchymosis. EPL/APB/ADALBERTO are all intact. 2+ radial pulse. + SILT x 5. Assessment & Plan Ortho Post Op Day #: 5 Problem List: Assessment and Plan POD #5: Right shoulder removal of deep hardware, proximal humerus Right shoulder open rotator cuff repair with subacromial decompression and excision of adhesions. 1. WBAT RUE, avoid heavy lifting/strengthening 2. Early A/PROM of RUE, may use sling for comfort. 3. Ice to the right shoulder for swelling 4. Maintain surgical clips, daily dressing changes. 5. Patient has elevated troponin and is scheduled for cardiac cath today. We will follow results. 6. F/U with Dr. Ng or SUZE Terrell in office. Hector Hylton Oct 01, 2016 11:42
[2016-10-01] MEDS: LORazepam 0.5 MG TAB PO PRN ×2 (11:54→20:15)
[2016-10-01] MEDS ORDERED: LOPERAMIDE HCL 2 MG CAP PO ONE (12:00)
[2016-10-01 13:51] LABS: APTT (PATIENT) 44.8 SEC (24.3-30.1)
[2016-10-01] MEDS ORDERED: MIDAZOLAM HCL 2 MG/2 ML VIAL ONE (14:17)
[2016-10-01] MEDS ORDERED: HEPARIN-NS/PF INJ 500 ML ONE (14:17)
--- NOTE | 2016-10-01 14:56 | CATHPROC ---
[employer] HIS Report Study Information Study Number Admission Scheduled Start Study Start [id number] Sep 27 2016 9:46PM 09/28/2016 Oct 01 2016 1:59PM [place] Service Cardiac Catheterization Admit Source Facility Department Emergency department [facility] - [facility] Physician and Clinical Staff Initial Marcelo Whitehead Magnet Valve Assemblerradha Lopez RN, Willian Recorder Mervat Webber,RT(R) (BS) Scrub Florence Hampton,RT(R) Procedures Performed Procedure Location (Site) Vessel Name Coronary Angiograms LCA Left Coronary Coronary Angiograms RCA Right Coronary L Heart Cath Equipment Time School Cook Description Size Mfg Part Number Used/Scraped TRANSDUCER, TRUWAVE [id number] 14:30 ZHENG HUIZAR * Used W/STOCKCOCK *[id number] [id number] *[id number] [id number] *[id number] 14:30 MEDLINE IND[employer] PACK, CCL CUSTOM * Used *[id number] 14:30 [employer] Software PACER PEN, SKIN DUAL W/ RULER * Used *[id number] 14:30 eVropa WIRE, 3MMJ .035 180CM 180CM Used *[id number] 14:30 NAMIC MANIFOLD, 4 PORT * Used *[id number] 14:30 NYCOMED OMNIPAQUE, 350 MG, 150ML 150ML [id number] Used [id number] 14:30 [employer] BLANKET,WARM AIR CCL * Used *[id number] 14:30 [place] MEDICAL SHEATH, FR5 TERUMO (10CM) FR 5 Used *[id number] History: Current Medications Medication Dosage/Unit Route Frequency Last Date/Time Taken Beta Louann History: Allergies Allergy Reaction UNOBTAINABLE Latex Hives [place] Anaphylaxis Demerol Shortness of Breath MOOD STABLIZERS Anaphylaxis History: Risk Factors Family History of Hypertension Dyslipidemia Previous CO Previous Heart Failure Premature CAD Yes No No No No Prior Valve Prior PCI Prior CABG Surgery No No No Cerebrovascular Peripheral Artery Chronic Lung On Dialysis Diabetes Disease Disease Disease No No No No No History: Stress Tests Stress or Imaging Studies Performed No History: Other Current Smoker No Labs Hgb (g/dl) Hct (%) WBC (l/cumm) 11.60-17.00 35.00-51.00 4.00-11.00 8.8 25.6 12.4 Glucose (mg/dl) BUN (mg/dl) Creatinine (mg/dl) BUN:Creatinine (1:x) 74.00-106.00 7.00-18.00 0.50-1.30 10.00-20.00 95 7 0.4 17.5 Na (meq/l) K (meq/l) 136.00-145.00 3.50-5.10 141 3.6 INR (PTT:PT) 0.90-1.10 1.1 Troponin I (ng/ml) CPK-MB (ng/ML) 0.02-0.05 0.50-3.60 0.97 Not Drawn Medication Medication Total Dose (Bolus/Oral) Medication Total Dosage/Unit 1% XYLOCAINE 20 mL FENTANYL 50 mcg VERSED 1 mg Medications (Bolus/Oral) Medication Time Given Dosage/Unit Administered By Reason 1% XYLOCAINE 10/01/2016 2:35:49 PM 20 mL Marcelo Holley 20 mL 1% XYLOCAINE given in lab by Marcelo Holley in Right Groin via Subcutaneous. FENTANYL 10/01/2016 2:36:12 PM 50 mcg Willian Lopez RN 50 mcg FENTANYL given in lab by Willian Lopez RN in Right Antecubital via Peripheral IV. VERSED 10/01/2016 2:37:25 PM 1 mg Willian Lopez RN 1 mg VERSED given in lab by Willian Lopez RN in Right Antecubital via Peripheral IV. Medication (Drip) Medication Time Given Dosage/Unit Concentration/Unit Diluent (ml) Solution IV Solutions 10/01/2016 2:08:25 PM 0 mL (IV) NaCl .9 IV Solutions given in lab by Willian Lopez RN in Right Antecubital via Peripheral IV. Pump/Drip Flow = 100 ml/hr using NaCl .9. Initial Case Assessment Cardiovascular HR Rhythm NIBP Chest Pain 72 reg 160/84 0 Edema Present Skin color Skin None Normal Warm Dry Circulatory - Right Pulses Dorsalis Pedis Femoral 2 2 Scale (0,1,2,3,4,d) Circulatory - Left Pulses Dorsalis Pedis Femoral 2 2 Scale (0,1,2,3,4,d) Circulatory - Lower Extremities Color Lower Right Color Lower Left Normal Normal Neurological State Oriented to time-place- Alert Moves all extremities person Respiration - General Respiration Rate SpO2 (%) (B/min) 16 97 Chronological Log Time Study Chronological Log 14:07:52 Patient arrived via Bed. 14:07:53 Patient Name, D.O.B, / Armband Verified By R.N. 14:07:54 Consent signed by the physician and the patient and verified by the [employer] staff. 14:08:02 Pre-op and post- op instructions given; patient acknowledges understanding of instructions. 14:08:03 Verbal Stimulation=2 Physical Stimulation=2 Airway=2 Respiration=2 TOTAL=8. (0=absent, 1=li mited, 2=present) 14:08:05 Presedation assessment performed by [employer] RN. 14:08:14 Allens test performed on the right radial and ulnar artery. 14:08:18 Patient has been NPO for More than 6Hrs. 14:08:20 Skin Breakdown none per pt 14:08:21 Patient Warmer Placed on the Table. 14:08:24 Deniz Prominences Protected 14:08:24 A # 20 IV was noted in the Antecubital (right). Grade = 0 IV Solutions given in lab by Willian Lopez RN in Right Antecubital via Peripheral IV. Pump/Drip Flow = 100 ml/hr using 14:08:25 NaCl .9. 14:08:26 History and physical on the chart or being dictated. Assessment: Initial Case, HR=72 BPM, Rhythm=reg, IDDU=587/84 mmhg, Chest Pain=0, Edema=None, Co veronica=Normal, Skin = Warm, Dry Right Pulses: Tavo Ped=2, Femoral=2 Left Pulses: Atvo Ped=2, Femoral=2 14:08:28 Lower Right Extremities: Color=Normal Lower Left Extremities: Color=Normal Neurological: State=Alert, Ox3, SINGH Respiration: Resp=16 B/min, SpO2=97 % Vitals capture started with the following parameters, Patient=Adult, Interval=5 min, Initial Pr fjognq=719 mmHg, 14:14:28 Deflation Rate=5 mmHg 14:15:26 DJJX=870/84 mmhg, SpO2=97.0 %, Pain=0, Nilson=10, Taveras=1 14:19:05 Reference ECG taken 14:20:06 HR=68 bpm, BYET=746/82 mmhg, SpO2=97.0 %, Resp=11 B/min, Pain=0, Nilson=10, Taveras=1 14:24:06 Bilateral groins prepped with 2% chlorhexidine, and with a 3 min. waiting time. 14:25:07 HR=73 bpm, LCIU=979/88 mmhg, SpO2=95.0 %, Resp=18 B/min, Pain=0, Nilson=10, Taveras=1 14:28:50 Pressure channel 1 zeroed. 14:30:54 HR=60 bpm, SWCC=881/83 mmhg, SpO2=97.0 %, Resp=11 B/min, Pain=0, Nilson=10, Taveras=1 14:32:38 MD arrived 14:35:10 HR=49 bpm, WVQL=195/101 mmhg, SpO2=95.0 %, Resp=16 B/min, Pain=0, Nilson=10, Taveras=1 Time Out. Correct patient, correct procedure,correct physician, power injector not loaded with contrast with surgical 14:35:23 team present. Time Out Concurred by MD, individual staff in procedure 14:35:42 Case Start 14:35:49 20 mL 1% XYLOCAINE given in lab by Marcelo Holley in Right Groin via Subcutaneous. 14:36:12 50 mcg FENTANYL given in lab by Willian Lopez RN in Right Antecubital via Peripheral IV. 14:36:19 Access site was Right Femoral Artery. 14:36:26 A SHEATH, FR5 TERUMO (10CM) FR 5 was advanced into the Fem Art (right) using the Percutaneo us technique. A JR 4.0 INFINITI CATHETER FR 5 was advanced over a wire. OMNIPAQUE, 350 MG, 150ML 150ML was us ed for 14:37:16 injections. 14:37:25 1 mg VERSED given in lab by Willian Lopez RN in Right Antecubital via Peripheral IV. Recorded Pressure: Ao, HR=60, Condition=Condition 1 14:38:05 (Aorta) Ao 162/74/109 14:38:17 The RCA was injected and visualized at various angles. OMNIPAQUE, 350 MG, 150ML 150ML used . After removing the current catheter a JL 4.0 INFINITI CATHETER FR 5 was advanced over a WIRE, 3 MMJ .035 180CM 14:38:51 180CM. 14:39:39 The LCA was injected and visualized at various angles. OMNIPAQUE, 350 MG, 150ML 150ML used . 14:40:09 HR=64 bpm, XBQV=321/94 mmhg, SpO2=94.0 %, Resp=16 B/min, Pain=0, Nilson=10, Taveras=1 After removing the current catheter a JR 4.0 INFINITI CATHETER FR 5 was advanced over a WIRE, 3 MMJ .035 180CM 14:41:03 180CM. 14:43:08 Catheter was removed 14:43:16 Case End 14:44:06 CIC called. Spoke to [place]. Advised pt will be coming out with a sheath. 14:44:55 Catheter(s) removed without difficulty 14:44:56 Sheath(s) left in place. Will be removed in pt room. 14:45:23 Sterile dressing applied to site 14:45:25 No case complications noted. 14:45:27 Cine recording checked. 14:45:28 Bedside Report will be given. 14:45:31 Contrast Scanned 14:45:35 A Left Heart Cath was performed. 14:45:45 HR=65 bpm, UUDV=741/79 mmhg, SpO2=94.0 %, Resp=14 B/min, Pain=0, Nilson=10, Taveras=1 14:49:10 Vitals capture stopped. 14:51:12 Patient moved to [facility] End Study - Contrast Media Used In Study Contrast Total Opened (mL) Total Used (mL) Total Wasted (mL) Omnipaque 30 30 0 End Study - Maximum Contrast Load Max Contrast Load (mL) 748.9 End Study - Radiation Exposure Fluoro Time (minutes) 1.5 End Study - Patient Disposition Complications Transferred To Interventional Outcome No Telemetry Bed No attempt made
[2016-10-01] MEDS ORDERED: IOHEXOL 350 MG/ML 50 ML BTL (for Cath Lab) OTHER ONE (15:08)
--- NOTE | 2016-10-01 15:21 | MA ---
cc: BRADEN LESTER DATE: 10/01/2016 INDICATION Nqu-SF-uvriprvyy PA. PROCEDURE PERFORMED 1. Fluoroscopy with interpretation. 2. Coronary angiography. METHOD Risks, benefits and alternatives were discussed with the patient. The patient understood and consented to the procedure. The patient was brought to the catheterization lab and placed on the catheterization table. Right groin was prepped and draped in sterile fashion. Right groin was anesthetized with 2% lidocaine. Right common femoral artery was cannulated and a 5-Syriac 11 cm sheath was placed without difficulty. CORONARY ANGIOGRAPHY 1. Left main coronary is angiographically normal. 2. Left anterior descending coronary is a large caliber size vessel, angiographically normal. 3. Left circumflex is very small caliber, angiographically normal. 4. Right coronary is dominant vessel giving rise to posterior descending branch. Right coronary is angiographically normal. CONCLUSION Angiographically normal coronary arteries. PLAN The patient will be monitored for any post procedural complications. Troponin elevation likely secondary to demand mediated event. She can follow up with her primary care in the outpatient setting. No need for cardiac followup. MD LOUIS Reeves/MARIO /2:51 PM /3:13 PM
[2016-10-02] VITALS (11 sets, daily range): BP systolic 153–166; BP diastolic 87–101; PULSE 60–97; RESP 16–18; TEMP 98–98.6; O2SAT 96–98
[2016-10-02] MEDS: LORazepam 0.5 MG TAB PO PRN ×2 (02:02→08:40)
[2016-10-02] MEDS: CHLORHEXIDINE GLUCONATE 2 % 1 PACK (2 CLOTHS) TOP SCH (02:48)
[2016-10-02] MEDS: oxyCODONE/ACETAMINOPHEN 5 MG/325 MG TAB PO PRN ×2 (04:44→08:40)
--- NOTE | 2016-10-02 07:45 | HHI.PR ---
Subjective Remarks eager for d/c ambulating. Objective Vitals heart reg lung cta abd s/nt ext right shoulder bandaged. Vital Signs Date Time Temp Pulse Resp B/P Pulse Ox O2 Delivery O2 Flow Rate FiO2 10/02/16 05:00 72 10/02/16 04:15 Room Air 10/02/16 04:00 98.0 91 16 153/89 98 10/02/16 04:00 73 10/02/16 03:00 60 10/02/16 02:00 62 10/02/16 01:00 62 10/02/16 00:10 Room Air 10/02/16 00:00 63 10/02/16 00:00 98.0 77 16 160/101 98 10/01/16 23:00 60 10/01/16 22:00 92 10/01/16 21:03 21 10/01/16 21:00 82 10/01/16 20:20 Room Air 10/01/16 20:00 97.9 98 18 148/81 98 10/01/16 20:00 80 10/01/16 19:00 76 10/01/16 18:00 66 10/01/16 17:00 80 10/01/16 16:41 16 10/01/16 16:00 74 10/01/16 16:00 Room Air 10/01/16 16:00 97.9 73 18 155/83 98 10/01/16 14:00 66 10/01/16 13:00 56 10/01/16 12:45 140/72 10/01/16 12:00 Nasal Cannula 2.00 10/01/16 12:00 57 10/01/16 12:00 98.1 63 20 183/91 97 10/01/16 11:00 68 10/01/16 10:28 94 21 10/01/16 10:00 90 10/01/16 09:00 72 10/01/16 08:00 Nasal Cannula 2.00 10/01/16 08:00 98.9 79 20 159/81 97 10/01/16 08:00 78 10/01/16 07:47 Nasal Cannula 2.00 10/01/16 10/01/16 10/02/16 15:00 23:00 07:00 Intake Total 424 ml 480 ml Output Total 825 ml Balance -401 ml 480 ml Intake Oral 240 ml 480 ml IV Total 184 ml Output Urine Total 825 ml # Voids 3 4 # Bowel Movements 1 1 Result Diagram: 10/01/16 0604 09/30/16 0425 Imaging Last Impressions Liver Ultrasound 09/28/16 0000 Signed Impressions: Service Date/Time: Wednesday, September 28, 2016 14:14 - CONCLUSION: 1. Gallbladder is distended with wall thickening and pericholecystic fluid. However, no gallstones are present. Additionally, sonographic Messer's sign is negative suggesting against acute cholecystitis. 2. Visualized portion of the 4.9 cm right upper pole renal cyst appears simple. Juntio David MD Chest X-Ray 09/28/16 0000 Signed Impressions: Service Date/Time: Wednesday, September 28, 2016 03:56 - CONCLUSION: 1. Left lower lobe atelectasis versus pneumonia. There has been no significant change when compared to the prior exam. Caleb Mendes MD Head CT 09/27/[id number] Signed Impressions: Service Date/Time: September 19:27 - CONCLUSION: Negative noncontrast CT brain. Alex Lara MD Objective Remarks Last Impressions Liver Ultrasound 09/28/16 0000 Signed Impressions: Service Date/Time: Wednesday, September 28, 2016 14:14 - CONCLUSION: 1. Gallbladder is distended with wall thickening and pericholecystic fluid. However, no gallstones are present. Additionally, sonographic Messer's sign is negative suggesting against acute cholecystitis. 2. Visualized portion of the 4.9 cm right upper pole renal cyst appears simple. Junito David MD Chest X-Ray 09/28/16 0000 Signed Impressions: Service Date/Time: Wednesday, September 28, 2016 03:56 - CONCLUSION: 1. Left lower lobe atelectasis versus pneumonia. There has been no significant change when compared to the prior exam. Caleb Mendes MD Head CT 09/27/[id number] Signed Impressions: Service Date/Time: September 19:27 - CONCLUSION: Negative noncontrast CT brain. Alex Lara MD A/P Problem List: (1) Opioid overdose Status: Acute Plan: - Patient underwent orthopedic surgery 09/26/16 - Patient found in her home hypotensive, AMS, GCS 3. Improvement after narcan - Pt admitted to ICU 09/27 for respiratory insufficiency under [facility] - Patient did NOT require intubation - It was felt to be unintentional...psych eval noted. f/u outpt (2) Elevated troponin I level Status: Acute Plan: - Patient's troponins found to be elevated, and peaked at 2.37 - Echocardiogram (09/29/16) - EF 50 - 55% - Inferior vena cava with poor inspiratory collapse consistent with elevated right atrial pressure - Mild to moderate aortic valve regurgitation - Mild to moderate tricuspid valve regurgitation -[facility] nm coronaries (3) Benzodiazepine abuse Status: Acute Plan: - See above (4) ADIN (acute kidney injury) Status: Acute Plan: - Mild, resolved (5) Elevated LFTs Status: Acute Plan: - Mild, improved - Consider resuming statin therapy upon discharge (6) Pneumonia Status: Acute Plan: - Pneumonia versus atelectasis - Patient has been afebrile since 09/28/16 - Leukocytosis resolved - CXR (09/28/16) --> LLL atelectasis versus pneumonia - Zosyn (09/27 - 09/29/16) (7) S/P hardware removal Status: Acute Plan: - Case discussed with orthopedic surgeon, Dr. Guerrero Ng (09/30/16) - On the day prior to admission, Saturday, September 26, 2016 - Patient underwent removal of right shoulder hardware (plate and screw) lysis of adhesions, repair of small right rotator cuff tear f/u after d/c. They evaluated pt while here. (8) Chronic migraine Status: Acute (9) Bipolar disorder Status: Chronic Plan: - Per outpatient records history of bipolar disorder and generalized anxiety - States that the records are incorrect and that she does NOT have a h/o bipolar disorder, per pt she has depression and anxiety - per pt, she once had lithium toxicity - Continue fluoxetine - psychiatry evaluation pending - Should follow-up with [facility] psychiatry outpatient (10) HTN (hypertension) Status: Acute Plan: hien started by cardiology Problem Qualifiers (1) Opioid overdose: Qualified Code: T40.2X4S - Opioid overdose, undetermined intent, sequela (2) Pneumonia: Qualified Code: J18.9 - Pneumonia of left lung due to infectious organism, unspecified part of lung (3) Bipolar disorder: Qualified Code: F31.9 - Bipolar affective disorder, remission status unspecified Bravo Allison MD Oct 02, 2016 07:45
[2016-10-02] MEDS ORDERED: FLUO10CA4 PO (07:48)
[2016-10-02] MEDS ORDERED: LISI10TA3 PO (07:48)
--- NOTE | 2016-10-02 07:48 | HHI.DCPOC ---
Discharge Care Plan Diagnosis: (1) Opioid overdose (2) Altered mental status (3) ADIN (acute kidney injury) (4) HTN (hypertension) (5) S/P hardware removal (6) Elevated troponin I level Goals to Promote Your Health * To prevent worsening of your condition and complications * To maintain your health at the optimal level Directions to Meet Your Goals Take your medications as prescribed Follow your dietary instruction Follow activity as directed Keep your appointments as scheduled Take your immunizations and boosters as scheduled If your symptoms worsen call your PCP, if no PCP go to Urgent Care Center or Emergency Room Smoking is Dangerous to Your Health. Avoid second hand smoke Call the 24-hour hour crisis hotline for domestic abuse at Bravo Allsion MD Oct 02, 2016 07:48
[2016-10-02] MEDS: ASPIRIN 325 MG TAB PO SCH (08:39)
[2016-10-02] MEDS: LISINOPRIL 10 MG TAB PO SCH (08:40)
[2016-10-02] MEDS: METOPROLOL TARTRATE 25 MG TAB PO SCH (08:40)
[2016-10-02] MEDS: DOCUSATE SODIUM 50 MG/SENNA 8.6 MG TAB PO SCH (08:41)
[2016-10-02] MEDS: FAMOTIDINE 20 MG TAB PO SCH (08:41)
[2016-10-02] MEDS: SODIUM CHLORIDE 0.9% FLUSH 10 ML FLUSH SCH (08:42)
[2016-10-02] MEDS ORDERED: FLUoxetine HCL 10 MG CAP PO SCH (09:00)
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
== END 2016-10-02 10:40 | disposition home or self-care (01) | DRG 917 ==
LOC: NEPC 18:48 → EDBD 21:46 → NEDA 21:46 → HIMW 09-28 01:20 → HCIS 09-29 13:08
PROVIDERS: ADMIT Internal Medicine Critical Care Medicine; ATTEND Internal Medicine Critical Care Medicine
PROC: 009U3ZX Drainage of Spinal Canal, Percutaneous Approach, Diagnostic (ICD-10-PCS; principal; 2016-09-27)
PROC: B2111ZZ Fluoroscopy of Multiple Coronary Arteries using Low Osmolar Contrast (ICD-10-PCS; 2016-10-01)
DX: T40.2X1A Poisoning by other opioids, accidental (unintentional), initial encounter (principal); I21.4 Non-ST elevation (NSTEMI) myocardial infarction; J18.9 Pneumonia, unspecified organism; N17.9 Acute kidney failure, unspecified; E86.0 Dehydration; J98.11 Atelectasis; R41.82 Altered mental status, unspecified; G43.909 Migraine, unspecified, not intractable, without status migrainosus; E03.9 Hypothyroidism, unspecified; I10 Essential (primary) hypertension; E78.5 Hyperlipidemia, unspecified; M79.7 Fibromyalgia; M19.90 Unspecified osteoarthritis, unspecified site; G89.29 Other chronic pain; R10.9 Unspecified abdominal pain; R40.2431 Glasgow coma scale score 3-8, in the field [EMT or ambulance]; I08.2 Rheumatic disorders of both aortic and tricuspid valves; F13.10 Sedative, hypnotic or anxiolytic abuse, uncomplicated; F31.9 Bipolar disorder, unspecified; F41.1 Generalized anxiety disorder; Z91.5 Personal history of self-harm
CPT/HCPCS: 62270; 70450; 71010; 76705; 80053; 80307; 81001; 82140; 82550; 82552; 82945; 83605; 83735; 84100; 84157; 84484; 85025; 85027; 85610; 85730; 86403; 87040; 87070; 87205; 87641; 89051; 93005; 93306; 93454; 94150; 96361; 96365; 96367; 96375; 96376; C1769; C1893; J0360; J0456; J0692; J1644; J1650; J2250; J2270; J2310; J2405; J2543; J3010; J7030; J7050; Q9967